=== PATIENT | female | born 1960 | race Caucasian/White ===

== ENCOUNTER → 2016-07-30 | Outpatient (CLI) | payer OTHER ==
[~2016-07-30] MED LIST: CLONPOW23 PO; GABAPOW41 PO; MELOPOW PO; METOPROLOL PO; PREVACID PO
[2016-07-30 12:23] LABS: BASO % 0.4 % (0.0-1.0); EOS # 0.1 K/mm3 (0.0-0.50); EOS % 1.7 % (0.0-3.0); LARGE UNSTAINED CELL # 0.1 K/mm3 (0.0-0.4); LARGE UNSTAINED CELL % 1.5 % (0.0-4.0); LYMPH # 2.1 K/mm3 (1.5-4.5); LYMPH % 26.8 % (24.0-44.0); MEAN CORPUSCULAR HEMOGLOBIN 33.5 pg (27.0-33.0); MEAN CORPUSCULAR HGB CONC 32.6 g/dl (32.0-36.5); MEAN CORPUSCULAR VOLUME 102.8 fl (80.0-96.0); MONO # 0.3 K/mm3 (0.0-0.8); MONO % 3.8 % (0.0-5.0); NEUTROPHILS # 5.1 K/mm3 (1.8-7.7); NEUTROPHILS % 65.8 % (36.0-66.0); PLATELET COUNT, AUTOMATED 301 k/mm3 (150-450); RED CELL DISTRIBUTION WIDTH 15.7 % (11.5-14.5); WHITE BLOOD COUNT 7.7 K/mm3 (4.0-10.0)
[2016-07-30 12:45] LABS: ALBUMIN 3.8 GM/DL (3.2-5.2); ALBUMIN/GLOBULIN RATIO 1.19 (1.00-1.93); ALKALINE PHOSPHATASE 158 U/L (45-117); ALT/SGPT 23 U/L (12-78); ANION GAP 9 MEQ/L (8-16); AST/SGOT 9 U/L (15-37); BILIRUBIN,DIRECT 0.2 MG/DL (0.0-0.2); BILIRUBIN,TOTAL 0.6 MG/DL (0.2-1.0); BLOOD UREA NITROGEN 11 MG/DL (7-18); CALCIUM LEVEL 9.3 MG/DL (8.5-10.1); CARBON DIOXIDE LEVEL 30 MEQ/L (21-32); CHLORIDE LEVEL 103 MEQ/L (98-107); CHOLESTEROL LEVEL 159 MG/DL (<200); CREATININE FOR GFR 0.97 MG/DL (0.55-1.02); GLOMERULAR FILTRATION RATE > 60.0 (>51); GLUCOSE, FASTING 105 MG/DL (70-105); POTASSIUM SERUM 4.2 MEQ/L (3.5-5.1); SODIUM LEVEL 142 MEQ/L (136-145); TRIGLYCERIDES LEVEL 209 MG/DL (<150)
== END | disposition home or self-care (01) ==
LOC: M WUC 09:14
PROVIDERS: ATTEND Nurse Practitioner Family
DX: I10 Essential (primary) hypertension (principal); E78.5 Hyperlipidemia, unspecified; K21.9 Gastro-esophageal reflux disease without esophagitis; R53.83 Other fatigue; R63.5 Abnormal weight gain

== ENCOUNTER → 2017-07-23 | Outpatient (CLI) | payer OTHER ==
[2017-07-23 21:14] LABS: ALBUMIN 3.8 GM/DL (3.2-5.2); ALBUMIN/GLOBULIN RATIO 1.31 (1.00-1.93); ALKALINE PHOSPHATASE 158 U/L (45-117); ALT/SGPT 37 U/L (12-78); ANION GAP 11 MEQ/L (8-16); AST/SGOT 22 U/L (7-37); BILIRUBIN,DIRECT 0.3 MG/DL (0.0-0.2); BLOOD UREA NITROGEN 7 MG/DL (7-18); CALCIUM LEVEL 9.6 MG/DL (8.5-10.1); CARBON DIOXIDE LEVEL 25 MEQ/L (21-32); CHLORIDE LEVEL 109 MEQ/L (98-107); CREATININE FOR GFR 0.94 MG/DL (0.55-1.02); GLOMERULAR FILTRATION RATE > 60.0 (>51); GLUCOSE, FASTING 93 MG/DL (70-105); POTASSIUM SERUM 4.5 MEQ/L (3.5-5.1); SODIUM LEVEL 145 MEQ/L (136-145); T UPTAKE 30 % (30-39); TOTAL PROTEIN 6.7 GM/DL (6.4-8.2)
[2017-07-23 21:34] LABS: TOTAL T3 107.6 NG/DL (60.0-181.0)
[2017-07-23 22:02] LABS: LITHIUM LEVEL 0.55 MEQ/L (0.60-1.20)
== END ==
LOC: M WUC 11:39
DX: Z51.81 Encounter for therapeutic drug level monitoring (principal); Z79.899 Other long term (current) drug therapy
CPT/HCPCS: 82248

== ENCOUNTER 2018-03-09 17:13 | Emergency (ER) | payer OTHER ==
[2018-03-09 18:37] LABS: BASO % 0.3 % (0.0-1.0); EOS # 0.1 10^3/uL (0.0-0.50); EOS % 1.4 % (0.0-3.0); HEMATOCRIT 36.1 % (36.0-47.0); HEMOGLOBIN 12.5 g/dl (12.0-15.5); IMMATURE GRANULOCYTE % 0.3 % (0-3.0); LYMPH # 1.7 10^3/uL (1.5-4.5); LYMPH % 24.8 % (24.0-44.0); MEAN CORPUSCULAR HEMOGLOBIN 33.2 pg (27.0-33.0); MEAN CORPUSCULAR HGB CONC 34.6 g/dl (32.0-36.5); MEAN CORPUSCULAR VOLUME 95.8 fl (80.0-96.0); MONO # 0.4 10^3/uL (0.0-0.8); MONO % 5.3 % (0.0-5.0); NEUTROPHILS # 4.8 10^3/uL (1.8-7.7); NEUTROPHILS % 67.9 % (36.0-66.0); PLATELET COUNT, AUTOMATED 237 10^3/uL (150-450); RED BLOOD COUNT 3.77 10^6/uL (4.00-5.40)
[2018-03-09 18:55] LABS: INR 1.05; PROTHROMBIN TIME 13.8 SECONDS (12.1-14.4)
[2018-03-09 18:56] LABS: PARTIAL THROMBOPLASTIN TIME 27.9 SECONDS (25.4-37.6)
[2018-03-09 19:01] LABS: ALBUMIN 3.6 GM/DL (3.2-5.2); ALBUMIN/GLOBULIN RATIO 1.16 (1.00-1.93); ALKALINE PHOSPHATASE 143 U/L (45-117); ALT/SGPT 70 U/L (12-78); ANION GAP 8 MEQ/L (8-16); AST/SGOT 42 U/L (7-37); BILIRUBIN,DIRECT 0.3 MG/DL (0.0-0.2); BILIRUBIN,TOTAL 1.4 MG/DL (0.2-1.0); BLOOD UREA NITROGEN 12 MG/DL (7-18); CALCIUM LEVEL 8.6 MG/DL (8.5-10.1); CARBON DIOXIDE LEVEL 26 MEQ/L (21-32); CHLORIDE LEVEL 109 MEQ/L (98-107); CPK CREATINE PHOSPHOKINASE 43 U/L (26-192); CREATININE FOR GFR 0.95 MG/DL (0.55-1.30); FREE T4 1.03 NG/DL (0.76-1.46); GLOMERULAR FILTRATION RATE > 60.0 (>51); GLUCOSE, FASTING 95 MG/DL (70-100); LIPASE 420 U/L (73-393); POTASSIUM SERUM 3.6 MEQ/L (3.5-5.1); SODIUM LEVEL 143 MEQ/L (136-145); TOTAL PROTEIN 6.7 GM/DL (6.4-8.2); TROPONIN I < 0.02 NG/ML (< 0.10)
[2018-03-09 19:07] LABS: CK-MB VALUE MASS < 1.0 NG/ML (<3.6); MB/CK RELATIVE INDEX 2.32 (< OR =4); NT-PRO BNP 326 PG/ML (<125)
== END 2018-03-09 19:57 | disposition home or self-care (01) ==
LOC: M ED 17:13
DX: K85.90 Acute pancreatitis without necrosis or infection, unspecified (principal); I10 Essential (primary) hypertension; E78.5 Hyperlipidemia, unspecified; Z82.49 Family history of ischemic heart disease and other diseases of the circulatory system; Z98.0 Intestinal bypass and anastomosis status; Z79.899 Other long term (current) drug therapy
CPT/HCPCS: 71046

== ENCOUNTER → 2018-04-21 | Outpatient (CLI) | payer OTHER ==
[2018-04-21 18:29] LABS: ESTIMATED AVERAGE GLUCOSE 77 MG/DL (60-110); HEMOGLOBIN A1c 4.3 %
[2018-04-21 18:38] LABS: BASO % 0.2 % (0.0-1.0); EOS # 0.1 10^3/uL (0.0-0.50); EOS % 1.8 % (0.0-3.0); HEMATOCRIT 38.5 % (36.0-47.0); IMMATURE GRANULOCYTE % 0.2 % (0-3.0); LYMPH # 2.4 10^3/uL (1.5-4.5); LYMPH % 42.2 % (24.0-44.0); MEAN CORPUSCULAR HEMOGLOBIN 33.1 pg (27.0-33.0); MEAN CORPUSCULAR HGB CONC 33.8 g/dl (32.0-36.5); MONO # 0.2 10^3/uL (0.0-0.8); MONO % 3.3 % (0.0-5.0); NEUTROPHILS % 52.3 % (36.0-66.0); PLATELET COUNT, AUTOMATED 247 10^3/uL (150-450); RED BLOOD COUNT 3.93 10^6/uL (4.00-5.40); WHITE BLOOD COUNT 5.7 10^3/uL (4.0-10.0)
[2018-04-21 18:42] LABS: HEMATOCRIT 38.5 % (36.0-47.0)
[2018-04-21 18:48] LABS: ALBUMIN 4.2 GM/DL (3.2-5.2); ALBUMIN/GLOBULIN RATIO 1.68 (1.00-1.93); ALKALINE PHOSPHATASE 167 U/L (45-117); ALT/SGPT 147 U/L (12-78); ANION GAP 8 MEQ/L (8-16); AST/SGOT 122 U/L (7-37); BILIRUBIN,TOTAL 1.1 MG/DL (0.2-1.0); BLOOD UREA NITROGEN 11 MG/DL (7-18); CALCIUM LEVEL 9.2 MG/DL (8.5-10.1); CARBON DIOXIDE LEVEL 33 MEQ/L (21-32); CHLORIDE LEVEL 103 MEQ/L (98-107); CREATININE FOR GFR 0.96 MG/DL (0.55-1.30); FERRITIN 319 NG/ML (8-252); GLOMERULAR FILTRATION RATE > 60.0 (>51); GLUCOSE, FASTING 104 MG/DL (70-100); IRON (FE) 97 UG/DL (50-170); MAGNESIUM LEVEL 2.2 MG/DL (1.8-2.4); PERCENT SATURATION 38.5 % (13.2-45.0); POTASSIUM SERUM 4.1 MEQ/L (3.5-5.1); SODIUM LEVEL 144 MEQ/L (136-145); TOTAL 25(OH) VITAMIN D 12.4 NG/ML (30.0-100.0); TOTAL IRON BINDING CAPACITY 252 UG/DL (250-450); TOTAL PROTEIN 6.7 GM/DL (6.4-8.2)
[2018-04-24 14:05] LABS: PRETREATED FOLATE FOR RBCFOL 5.1 NG/ML; RBC FOLATE 278.2 NG/ML (280-791)
== END ==
LOC: M WUC 11:33
DX: K91.2 Postsurgical malabsorption, not elsewhere classified (principal); Z98.84 Bariatric surgery status
CPT/HCPCS: 83550

== ENCOUNTER 2018-04-24 11:22 | Emergency (ER) | payer OTHER | END 2018-04-24 13:50 | disposition home or self-care (01) | LOC: M ED 11:22 | DX: S70.02XA Contusion of left hip, initial encounter (principal); S09.90XA Unspecified injury of head, initial encounter; W18.09XA Striking against other object with subsequent fall, initial encounter; Y92.019 Unspecified place in single-family (private) house as the place of occurrence of the external cause | CPT/HCPCS: 73502 ==

== ENCOUNTER → 2018-12-26 | Outpatient (CLI) | payer OTHER ==
[~2018-12-26] MED LIST changes: +CLON1TAB8; +D 50CAP PO; +ESZO1TAB6; +FLIN1CHW PO; +HYDR-3713; +HYDR-3715 PO; +HYDR200T3; +HYDR25TAB; +LANS30CA; +LITH45TASA PO; +METH50IN8; +PROM25TA12; +PROP80TA; +ROPI1TAB PO; +VENL75CA47; +ZOFR4TAB14 PO
[2018-12-26 14:00] LABS: BASO % 0.5 % (0.0-1.0); EOS # 0.1 10^3/uL (0.0-0.50); EOS % 1.5 % (0.0-3.0); HEMATOCRIT 37.6 % (36.0-47.0); HEMOGLOBIN 13.1 g/dl (12.0-15.5); LYMPH # 2.6 10^3/uL (1.5-4.5); LYMPH % 44.6 % (24.0-44.0); MEAN CORPUSCULAR HGB CONC 34.8 g/dl (32.0-36.5); MEAN CORPUSCULAR VOLUME 103.3 fl (80.0-96.0); MONO # 0.5 10^3/uL (0.0-0.8); MONO % 8.1 % (0.0-5.0); NEUTROPHILS # 2.6 10^3/uL (1.8-7.7); NEUTROPHILS % 44.6 % (36.0-66.0); PLATELET COUNT, AUTOMATED 186 10^3/uL (150-450); RED BLOOD COUNT 3.64 10^6/uL (4.00-5.40); WHITE BLOOD COUNT 5.8 10^3/uL (4.0-10.0)
[2018-12-26 14:06] LABS: ALBUMIN 3.6 GM/DL (3.2-5.2); PERCENT SATURATION 30.2 % (13.2-45.0)
== END ==
LOC: M WUC 11:13
PROVIDERS: ATTEND Orthopaedic Surgery
DX: Z01.812 Encounter for preprocedural laboratory examination (principal); Z86.2 Personal history of diseases of the blood and blood-forming organs and certain disorders involving the immune mechanism; D63.8 Anemia in other chronic diseases classified elsewhere; M16.0 Bilateral primary osteoarthritis of hip

== ENCOUNTER 2019-03-16 11:33 | Outpatient (RCR) | payer OTHER | END 2019-03-20 | LOC: M PT 11:33 | PROVIDERS: ATTEND Orthopaedic Surgery | DX: Z96.643 Presence of artificial hip joint, bilateral (principal) ==

== ENCOUNTER 2019-04-16 11:45 | Outpatient (RCR) | payer OTHER | END 2019-04-19 | LOC: M PT 11:45 | PROVIDERS: ATTEND Physician Assistant | DX: M79.7 Fibromyalgia (principal); Z96.641 Presence of right artificial hip joint; Z96.642 Presence of left artificial hip joint ==

== ENCOUNTER 2019-05-13 11:45 | Outpatient (RCR) | payer OTHER | END 2019-05-20 | LOC: M PT 11:45 | PROVIDERS: ATTEND Physician Assistant | DX: Z47.1 Aftercare following joint replacement surgery (principal); Z96.641 Presence of right artificial hip joint; Z96.642 Presence of left artificial hip joint ==

== ENCOUNTER 2019-05-24 13:10 | Outpatient (RCR) | payer OTHER | END 2019-06-19 | LOC: M PT 13:10 | PROVIDERS: ATTEND Physician Assistant | DX: Z96.641 Presence of right artificial hip joint (principal); Z96.642 Presence of left artificial hip joint ==

== ENCOUNTER 2019-07-02 14:20 | Outpatient (RCR) | payer OTHER | END 2019-07-20 | LOC: M PT 14:20 | PROVIDERS: ATTEND Orthopaedic Surgery | DX: Z96.641 Presence of right artificial hip joint (principal); Z96.642 Presence of left artificial hip joint ==

== ENCOUNTER → 2020-01-10 | Outpatient (CLI) | payer OTHER ==
[~2020-01-10] MED LIST changes: -ROPI1TAB PO; +ROPI1TAB3 PO
[2020-01-10 16:34] LABS: BASO % 0.3 % (0.0-1.0); EOS # 0.1 10^3/uL (0.0-0.5); EOS % 1.6 % (0.0-3.0); HEMATOCRIT 38.7 % (36.0-47.0); LYMPH # 2.3 10^3/uL (1.5-5.0); LYMPH % 30.5 % (24.0-44.0); MEAN CORPUSCULAR HEMOGLOBIN 33.4 pg (27.0-33.0); MEAN CORPUSCULAR HGB CONC 33.6 g/dl (32.0-36.5); MEAN CORPUSCULAR VOLUME 99.5 fl (80.0-96.0); MONO # 0.3 10^3/uL (0.0-0.8); MONO % 4.3 % (0.0-5.0); NEUTROPHILS # 4.8 10^3/uL (1.5-8.5); PLATELET COUNT, AUTOMATED 240 10^3/uL (150-450); RED BLOOD COUNT 3.89 10^6/uL (4.00-5.40); WHITE BLOOD COUNT 7.6 10^3/uL (4.0-10.0)
[2020-01-10 16:56] LABS: ERYTHROCYTE SEDIMENTATION RATE 6 mm/hr (0-30)
[2020-01-10 17:08] LABS: ALT/SGPT 45 U/L (12-78); BILIRUBIN,TOTAL 1.6 MG/DL (0.2-1.0); BLOOD UREA NITROGEN 8 MG/DL (7-18); C REACTIVE PROTEIN QUANTITATIV < 0.30 MG/DL (0.00-0.30); CALCIUM LEVEL 9.1 MG/DL (8.5-10.1); CARBON DIOXIDE LEVEL 31 MEQ/L (21-32); CHLORIDE LEVEL 105 MEQ/L (98-107); CREATININE FOR GFR 0.93 MG/DL (0.55-1.30); GLOMERULAR FILTRATION RATE > 60.0 (>51); GLUCOSE, FASTING 88 MG/DL (70-100); POTASSIUM SERUM 3.6 MEQ/L (3.5-5.1); SODIUM LEVEL 139 MEQ/L (136-145); TOTAL PROTEIN 6.6 GM/DL (6.4-8.2)
== END ==
LOC: M WUC 11:17
PROVIDERS: ATTEND Internal Medicine Rheumatology
DX: Z51.81 Encounter for therapeutic drug level monitoring (principal); Z79.899 Other long term (current) drug therapy; M06.9 Rheumatoid arthritis, unspecified

== ENCOUNTER 2021-04-25 17:17 | Inpatient (IN) | payer OTHER ==
[~2021-04-25] VITALS: Ht 162.6 cm; Wt 18.8 kg
[~2021-04-25 17:17] MED LIST changes: -CLON1TAB8; +CLON1TAB8 PO; +HYDR-3490 PO; -HYDR25TAB; -LANS30CA; +LANS30CA PO; -PROM25TA12; +PROM25TA12 PO; -PROP80TA; +PROP80TA PO; -VENL75CA47; +VENL75CA47 PO
[2021-04-25 20:00] LABS: HEMATOCRIT 39.4 % (36.0-47.0); HEMOGLOBIN 13.5 g/dl (12.0-15.5); MEAN CORPUSCULAR HEMOGLOBIN 31.5 pg (27.0-33.0); MEAN CORPUSCULAR HGB CONC 34.3 g/dl (32.0-36.5); MEAN CORPUSCULAR VOLUME 92.1 fl (80.0-96.0); PLATELET COUNT, AUTOMATED 185 10^3/uL (150-450); RED BLOOD COUNT 4.28 10^6/uL (4.00-5.40)
[2021-04-25 20:32] LABS: ACETAMINOPHEN LEVEL < 2.0 UG/ML (10.0-30.0); ALBUMIN 3.8 GM/DL (3.2-5.2); ALT/SGPT 38 U/L (12-78); BILIRUBIN,DIRECT 0.4 MG/DL (0.0-0.2); BILIRUBIN,TOTAL 1.6 MG/DL (0.2-1.0); BLOOD UREA NITROGEN 11 MG/DL (7-18); CALCIUM LEVEL 8.8 MG/DL (8.5-10.1); CARBON DIOXIDE LEVEL 28 MEQ/L (21-32); CHLORIDE LEVEL 110 MEQ/L (98-107); CREATININE FOR GFR 0.72 MG/DL (0.55-1.30); ETHYL ALCOHOL (ETHANOL) < 0.003 % (0.000-0.010); GLOMERULAR FILTRATION RATE > 60.0 (>51); GLUCOSE, FASTING 90 MG/DL (70-100); POTASSIUM SERUM 3.6 MEQ/L (3.5-5.1); SALICYLATE LEVEL < 1.7 MG/DL (5.0-30.0); SODIUM LEVEL 142 MEQ/L (136-145); TOTAL PROTEIN 6.5 GM/DL (6.4-8.2)
[2021-04-26 00:13] LABS: AMPHETAMINES LEVEL URINE NEGATIVE (NEGATIVE); BARBITURATES URINE NEGATIVE (NEGATIVE); BENZODIAZEPINES URINE POSITIVE (NEGATIVE); CANNABINOIDS URINE NEGATIVE (NEGATIVE); COCAINE METABOLITE URINE NEGATIVE (NEGATIVE); METHADONE URINE NEGATIVE (NEGATIVE); OPIATES URINE NEGATIVE (NEGATIVE); PHENCYCLIDINE URINE NEGATIVE (NEGATIVE)
[2021-04-26] MEDS ORDERED: FOLI1TAB11 PO (07:50)
[2021-04-26] MEDS ORDERED: EFFE150C2 PO (07:50)
[2021-04-26] MEDS ORDERED: ERGO500029 PO (07:50)
[2021-04-26] MEDS ORDERED: LITH300C PO (07:50)
[2021-04-26] MEDS ORDERED: CETI-43 PO (07:53)
[2021-04-26] MEDS ORDERED: ZOLP12.518 PO (07:53)
[2021-04-26] MEDS ORDERED: FLUTISP (07:53)
[2021-04-26] MEDS ORDERED: HOME MED LIST COMPLETE! XX SCH (07:55)
[2021-04-26] MEDS ORDERED: clonazePAM 1 MG TAB PO PRN (08:20)
[2021-04-26] MEDS ORDERED: VENLAFAXINE **XR** 75MG CAPSULE PO SCH (09:00)
[2021-04-26] MEDS ORDERED: rOPINIRole 2MG TAB PO SCH (09:00)
[2021-04-26] MEDS ORDERED: PROPRANOLOL 20 MG TAB PO SCH (09:00)
[2021-04-26 11:13] LABS: RSV AMPLIFICATION NEGATIVE (NEGATIVE)
[2021-04-26] MEDS ORDERED: MAALOX 30 ML SUSP *UDC PO PRN (14:55)
[2021-04-26] MEDS ORDERED: MOM 30ML SUSPENSION UDC PO PRN (14:55)
[2021-04-26] MEDS ORDERED: ACETAMINOPHEN TAB 650MG DOSE (2X325MG) PO PRN (14:55)
--- NOTE | 2021-04-26 19:41 | ECGEPIP ---
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
[2021-04-26] MEDS: clonazePAM 1 MG TAB PO SCH (21:00)
[2021-04-26] MEDS: FLUTICASONE PROP 0.05% NASAL SPRAY 16 GM (FLONASE) SCH (21:00)
[2021-04-26] MEDS: zolPIDEM TARTRATE 5 MG TAB PO SCH (21:03)
[2021-04-27] MEDS: traZODone 50 MG TAB PO PRN (00:42)
[2021-04-27 06:16] VITALS: BP 112/58
[2021-04-27] MEDS ORDERED: LITHIUM CARBONATE 300 MG CAP PO SCH (09:00)
[2021-04-27] MEDS ORDERED: VENLAFAXINE **XR** 75MG CAPSULE PO SCH (09:00)
[2021-04-27] MEDS: FOLIC ACID 1 MG TAB PO SCH (09:13)
[2021-04-27] MEDS: CETIRIZINE (ZyrTEC) 10 MG TAB PO SCH (09:13)
[2021-04-27] MEDS: FLUTICASONE PROP 0.05% NASAL SPRAY 16 GM (FLONASE) SCH ×2 (09:13→22:44)
[2021-04-27] MEDS: clonazePAM 1 MG TAB PO SCH ×3 (09:14→22:45)
[2021-04-27] MEDS: PROPRANOLOL 20 MG TAB PO SCH (09:16)
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
[2021-04-27] MEDS: rOPINIRole 0.25 MG TAB(REQUIP) PO SCH ×2 (16:44→22:44)
[2021-04-27 18:00] VITALS: BP 82/62
[2021-04-27] MEDS ORDERED: IBUPROFEN 400MG TAB PO PRN (19:00)
--- NOTE | 2021-04-27 19:27 | HPEPDOC ---
[facility] Medical History & Physical Date of Admission Apr 26, 2021 Date of Service: Apr 27, 2021 History and Physical CHIEF COMPLAINT: Medical health screening HISTORY OF PRESENT ILLNESS: Mrs. Floyd is a 59-year-old female with fibromyalgia, restless leg syndrome, and rheumatoid arthritis who is in the inpatient mental health unit for suicidal ideation. Please see [facility] H&P for information about patient's suicidal ideation. I saw patient in her room with nurse communications executive. Patient was eating dinner on the bed. She tells me that she has diffuse aches in her legs, arms, feet, and lower back from her fibromyalgia. She was on gabapentin at one time, but she gained a lot of weight and ended up happening gastric bypass. She is no longer on gabapentin. Otherwise, she reports alternating hot and cold sensations, chest discomfort secondary to anxiety, and constipation from IBS. Patient denies any shortness of breath, abdominal pain, or dysuria. PAST MEDICAL HISTORY: 1. Fibromyalgia. 2. Restless leg syndrome. 3. Rheumatoid arthritis. 4. Irritable bowel syndrome, constipation predominant. PAST SURGICAL HISTORY: 1. Gastric bypass. 2. Double hip surgery. 3. SOCIAL HISTORY: Tobacco use: Denies ETOH: Denies Illicit drug use: Denies FAMILY HISTORY: Father: History of drug abuse Mother: History of anxiety, heart disease, and blood pressure problems ALLERGIES: Please see below. REVIEW OF SYSTEMS: CONSTITUTIONAL: Reports having alternating hot and cold sensations EYE: Reports blurry vision, uses glasses. ENT: Denies sore throat. RESPIRATORY: Denies shortness of breath. Sometimes has a cough. CARDIOVASCULAR: Reports anxiety induced chest discomfort. GASTROINTESTINAL: Denies abdominal pain. Denies diarrhea. Reports constipation GENITOURINARY: Denies dysuria. CUTANEOUS: Denies rashes. MUSCULOSKELETAL: Reports diffuse muscle aches NEUROLOGICAL: Reports neuropathy in feet bilaterally PSYCHOLOGICAL: Reports anxiety. HOME MEDICATIONS: Please see below. PHYSICAL EXAMINATION: VITAL SIGNS: Temperature 98.3, pulse 86, respiratory rate 16, blood pressure 119/79, pulse oximetry 98% on room air. GENERAL: Not in distress, moves slowly. HEENT: EOMI, sclera clear. NECK: Supple. RESPIRATORY: Lungs clear to auscultation bilaterally, no rales, wheeze or rhonchi. CARDIOVASCULAR: Regular rate and rhythm. ABDOMEN: Soft, nontender, no guarding or rebound tenderness. Normal bowel sounds. MUSCLE SKELETAL: Moves arms and legs independently. NEUROLOGICAL: CN 312 grossly intact, no focal deficits noted. PSYCHOLOGICAL: Depressed. LABORATORY DATA: See below. IMAGING: None MICROBIOLOGY: Please see below. ASSESSMENT and PLAN: 1. Suicidal ideation Being managed by the inpatient mental health unit 2. Fibromyalgia Continue acetaminophen as needed Add on ibuprofen as needed Continue antidepressants 3. Restless leg syndrome Continue ropinirole 4. Hypertension Continue hydrochlorothiazide and propranolol 5. Low back pain May use acetaminophen and ibuprofen as needed Added on lidocaine patch Thank you for consulting us. We will sign off at this time. If there is any further questions or concerns, please do not hesitate to contact us. Vital Signs Vital Signs Date Time Temp Pulse Resp B/P (MAP) Pulse Ox O2 Delivery O2 Flow Rate FiO2 04/27/21 09:16 86 119/79 04/27/21 06:16 98.3 16 98 Room Air Home Medications Scheduled Cetirizine HCl (All Day Allergy) 10 Mg Tablet, 10 MG PO DAILY Clonazepam (Clonazepam) 1 Mg Tab, 1 MG PO TID Ergocalciferol (Vitamin D2) (Vitamin D2) 50,000 Units Cap, 50,000 UNITS PO QWEEK Fluticasone Propionate (Fluticasone Propionate) 16 Gm [place].susp, 1 SPRAY NA BID Folic Acid (Folic Acid) 1 Mg Tablet, 1 MG PO DAILY Hydrochlorothiazide (Hydrochlorothiazide) 25 Mg Tab, 25 MG PO QAM Lansoprazole (Lansoprazole) 30 Mg Cap, 30 MG PO DAILY [place] Carbonate ([place] Carbonate) 300 Mg Capsule, [address] TOLD HER TO DISCONTINUE Propranolol HCl (Propranolol HCl) 80 Mg Tab, 80 MG PO DAILY Ropinirole HCl (Ropinirole HCl) 1 Mg Tab, 1 TAB PO TID Venlafaxine HCl (Venlafaxine HCl ER) 75 Mg Capcr, 75 MG PO DAILY Venlafaxine HCl (Effexor Xr) 150 Mg Cap.er.24h, 150 MG PO DAILY Zolpidem Tartrate (Zolpidem Tartrate ER) 12.5 Mg Tab.mphase, 12.5 MG PO QHS Scheduled PRN Promethazine HCl (Promethazine HCl) 25 Mg Tab, 25 MG PO DAILY PRN for NAUSEA Allergies Coded Allergies: diphenhydramine (Verified Allergy, Unknown, 04/26/21) A-FIB/CHADSVASC A-FIB History Current/History of A-Fib/PAF?: No YARELI DUNHAM DO Apr 27, 2021 19:27
[2021-04-27] MEDS: LITHIUM CARBONATE 300 MG CAP PO SCH (22:45)
[2021-04-27] MEDS: zolPIDEM TARTRATE 5 MG TAB PO SCH (22:45)
[2021-04-27] MEDS: VENLAFAXINE **XR** 75MG CAPSULE PO SCH (22:45)
[2021-04-27] MEDS: LIDOCAINE 5% (LIDODERM) PATCH TD SCH (22:46)
[2021-04-28 07:31] VITALS: BP 127/72
[2021-04-28] MEDS: **NOTE PATIENT COMMENT** MISC XX SCH (09:00)
[2021-04-28] MEDS: PROPRANOLOL 20 MG TAB PO SCH (09:33)
[2021-04-28] MEDS: FLUTICASONE PROP 0.05% NASAL SPRAY 16 GM (FLONASE) SCH ×2 (09:33→22:49)
[2021-04-28] MEDS: rOPINIRole 0.25 MG TAB(REQUIP) PO SCH ×3 (09:34→22:50)
[2021-04-28] MEDS: clonazePAM 1 MG TAB PO SCH ×3 (09:34→22:48)
[2021-04-28] MEDS: CETIRIZINE (ZyrTEC) 10 MG TAB PO SCH (09:35)
[2021-04-28] MEDS: VENLAFAXINE **XR** 75MG CAPSULE PO SCH ×2 (09:35→22:48)
[2021-04-28] MEDS: FOLIC ACID 1 MG TAB PO SCH (09:35)
[2021-04-28] MEDS: LITHIUM CARBONATE 300 MG CAP PO SCH ×2 (09:36→22:48)
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
[2021-04-28 19:16] VITALS: BP 108/77
[2021-04-28] MEDS: zolPIDEM TARTRATE 5 MG TAB PO SCH (22:48)
[2021-04-28] MEDS: LIDOCAINE 5% (LIDODERM) PATCH TD SCH (22:51)
[2021-04-29 06:28] VITALS: BP 113/71
[2021-04-29] MEDS: FLUTICASONE PROP 0.05% NASAL SPRAY 16 GM (FLONASE) SCH ×2 (08:27→22:45)
[2021-04-29] MEDS: PROPRANOLOL 20 MG TAB PO SCH (08:28)
[2021-04-29] MEDS: CETIRIZINE (ZyrTEC) 10 MG TAB PO SCH (08:28)
[2021-04-29] MEDS: rOPINIRole 0.25 MG TAB(REQUIP) PO SCH ×3 (08:28→22:46)
[2021-04-29] MEDS: clonazePAM 1 MG TAB PO SCH ×3 (08:28→22:45)
[2021-04-29] MEDS: VENLAFAXINE **XR** 75MG CAPSULE PO SCH ×2 (08:28→22:46)
[2021-04-29] MEDS: FOLIC ACID 1 MG TAB PO SCH (08:29)
[2021-04-29] MEDS: LITHIUM CARBONATE 300 MG CAP PO SCH ×3 (08:29→22:46)
[2021-04-29] MEDS: **NOTE PATIENT COMMENT** MISC XX SCH (09:28)
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
[2021-04-29 22:00] VITALS: BP 117/78
[2021-04-29] MEDS: zolPIDEM TARTRATE 5 MG TAB PO SCH (22:45)
[2021-04-29] MEDS: traZODone 50 MG TAB PO PRN (22:46)
[2021-04-29] MEDS: LIDOCAINE 5% (LIDODERM) PATCH TD SCH (22:53)
[2021-04-30 06:48] VITALS: BP 127/78
[2021-04-30] MEDS ORDERED: VITAMIN D 50,000 UNITS CAPSULE (ERGOCALCIFEROL 1.25MG) PO ONE (09:00)
[2021-04-30] MEDS: FLUTICASONE PROP 0.05% NASAL SPRAY 16 GM (FLONASE) SCH ×2 (09:01→20:29)
[2021-04-30] MEDS: VENLAFAXINE **XR** 75MG CAPSULE PO SCH ×2 (09:02→20:30)
[2021-04-30] MEDS: clonazePAM 1 MG TAB PO SCH ×3 (09:03→20:30)
[2021-04-30] MEDS: FOLIC ACID 1 MG TAB PO SCH (09:03)
[2021-04-30] MEDS: CETIRIZINE (ZyrTEC) 10 MG TAB PO SCH (09:03)
[2021-04-30] MEDS: LITHIUM CARBONATE 300 MG CAP PO SCH ×3 (09:03→20:30)
[2021-04-30] MEDS: rOPINIRole 0.25 MG TAB(REQUIP) PO SCH ×3 (09:04→20:30)
[2021-04-30] MEDS: PROPRANOLOL 20 MG TAB PO SCH (09:05)
[2021-04-30] MEDS: **NOTE PATIENT COMMENT** MISC XX SCH (09:05)
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
[2021-04-30 16:49] VITALS: BP 121/77
[2021-04-30] MEDS: zolPIDEM TARTRATE 5 MG TAB PO SCH (20:29)
[2021-04-30] MEDS: LIDOCAINE 5% (LIDODERM) PATCH TD SCH (20:30)
[2021-05-01 06:58] VITALS: BP 150/78
[2021-05-01] MEDS: **NOTE PATIENT COMMENT** MISC XX SCH (07:49)
[2021-05-01] MEDS: PROMETHAZINE 25 MG TAB PO PRN (07:54)
[2021-05-01] MEDS: rOPINIRole 0.25 MG TAB(REQUIP) PO SCH ×3 (07:54→20:46)
[2021-05-01] MEDS: PROPRANOLOL 20 MG TAB PO SCH (07:54)
[2021-05-01] MEDS: LITHIUM CARBONATE 300 MG CAP PO SCH ×3 (07:54→20:47)
[2021-05-01] MEDS: VENLAFAXINE **XR** 75MG CAPSULE PO SCH ×2 (07:54→20:46)
[2021-05-01] MEDS: FLUTICASONE PROP 0.05% NASAL SPRAY 16 GM (FLONASE) SCH ×2 (07:54→20:45)
[2021-05-01] MEDS: FOLIC ACID 1 MG TAB PO SCH (07:55)
[2021-05-01] MEDS: clonazePAM 1 MG TAB PO SCH ×3 (07:55→20:45)
[2021-05-01] MEDS: CETIRIZINE (ZyrTEC) 10 MG TAB PO SCH (07:55)
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
[2021-05-01 16:21] VITALS: BP 114/73
[2021-05-01] MEDS: zolPIDEM TARTRATE 5 MG TAB PO SCH (20:46)
[2021-05-01] MEDS: LIDOCAINE 5% (LIDODERM) PATCH TD SCH (20:55)
[2021-05-02 06:39] VITALS: BP 113/69
[2021-05-02] MEDS: FLUTICASONE PROP 0.05% NASAL SPRAY 16 GM (FLONASE) SCH ×2 (08:17→21:00)
[2021-05-02] MEDS: PROPRANOLOL 20 MG TAB PO SCH (08:18)
[2021-05-02] MEDS: rOPINIRole 0.25 MG TAB(REQUIP) PO SCH ×3 (08:19→21:42)
[2021-05-02] MEDS: clonazePAM 1 MG TAB PO SCH ×3 (08:20→21:42)
[2021-05-02] MEDS: LITHIUM CARBONATE 300 MG CAP PO SCH ×3 (08:20→21:42)
[2021-05-02] MEDS: VENLAFAXINE **XR** 75MG CAPSULE PO SCH ×2 (08:20→21:42)
[2021-05-02] MEDS: CETIRIZINE (ZyrTEC) 10 MG TAB PO SCH (08:21)
[2021-05-02] MEDS: FOLIC ACID 1 MG TAB PO SCH (08:21)
[2021-05-02] MEDS: **NOTE PATIENT COMMENT** MISC XX SCH (08:22)
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
[2021-05-02 16:24] VITALS: BP 107/69
[2021-05-02] MEDS: zolPIDEM TARTRATE 5 MG TAB PO SCH (21:42)
[2021-05-02] MEDS: LIDOCAINE 5% (LIDODERM) PATCH TD SCH (21:42)
[2021-05-03 07:47] VITALS: BP 117/70
[2021-05-03] MEDS: **NOTE PATIENT COMMENT** MISC XX SCH (09:00)
[2021-05-03] MEDS: CETIRIZINE (ZyrTEC) 10 MG TAB PO SCH (09:54)
[2021-05-03] MEDS: FOLIC ACID 1 MG TAB PO SCH (09:55)
[2021-05-03] MEDS: rOPINIRole 0.25 MG TAB(REQUIP) PO SCH ×3 (09:55→22:13)
[2021-05-03] MEDS: VENLAFAXINE **XR** 75MG CAPSULE PO SCH ×2 (09:55→22:13)
[2021-05-03] MEDS: LITHIUM CARBONATE 300 MG CAP PO SCH ×3 (09:55→22:13)
[2021-05-03] MEDS: FLUTICASONE PROP 0.05% NASAL SPRAY 16 GM (FLONASE) SCH ×2 (09:56→22:13)
[2021-05-03] MEDS: clonazePAM 1 MG TAB PO SCH ×3 (09:56→22:14)
[2021-05-03] MEDS: PROPRANOLOL 20 MG TAB PO SCH (09:57)
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
[2021-05-03 19:16] VITALS: BP 114/75
[2021-05-03] MEDS: LIDOCAINE 5% (LIDODERM) PATCH TD SCH (21:00)
[2021-05-03] MEDS: zolPIDEM TARTRATE 5 MG TAB PO SCH (22:16)
[2021-05-04 07:24] VITALS: BP 119/70
[2021-05-04] MEDS: PROMETHAZINE 25 MG TAB PO PRN (08:41)
[2021-05-04] MEDS: VENLAFAXINE **XR** 75MG CAPSULE PO SCH (09:41)
[2021-05-04 09:42] VITALS: BP 118/70
[2021-05-04] MEDS: PROPRANOLOL 20 MG TAB PO SCH (09:42)
[2021-05-04] MEDS: CETIRIZINE (ZyrTEC) 10 MG TAB PO SCH (09:42)
[2021-05-04] MEDS: LITHIUM CARBONATE 300 MG CAP PO SCH ×2 (09:42→13:33)
[2021-05-04] MEDS: rOPINIRole 0.25 MG TAB(REQUIP) PO SCH (09:42)
[2021-05-04] MEDS: FOLIC ACID 1 MG TAB PO SCH (09:42)
[2021-05-04] MEDS: clonazePAM 1 MG TAB PO SCH ×2 (09:43→13:20)
[2021-05-04] MEDS: FLUTICASONE PROP 0.05% NASAL SPRAY 16 GM (FLONASE) SCH (09:43)
[2021-05-04] MEDS: **NOTE PATIENT COMMENT** MISC XX SCH (09:55)
[2021-05-04 11:00] VITALS: BP 136/69
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
[2021-05-04 13:08] LABS: BASO % 0.3 % (0.0-1.0); EOS # 0.2 10^3/uL (0.0-0.5); EOS % 1.5 % (0.0-3.0); HEMATOCRIT 44.2 % (36.0-47.0); HEMOGLOBIN 15.6 g/dl (12.0-15.5); LYMPH % 17.2 % (24.0-44.0); MEAN CORPUSCULAR HEMOGLOBIN 31.4 pg (27.0-33.0); MEAN CORPUSCULAR HGB CONC 35.3 g/dl (32.0-36.5); MEAN CORPUSCULAR VOLUME 88.9 fl (80.0-96.0); MONO # 0.6 10^3/uL (0.0-0.8); MONO % 5.1 % (2.0-8.0); NEUTROPHILS # 8.8 10^3/uL (1.5-8.5); NEUTROPHILS % 75.5 % (36.0-66.0); PLATELET COUNT, AUTOMATED 240 10^3/uL (150-450); RED BLOOD COUNT 4.97 10^6/uL (4.00-5.40); WHITE BLOOD COUNT 11.7 10^3/uL (4.0-10.0)
[2021-05-04 13:26] LABS: ALT/SGPT 44 U/L (12-78); BILIRUBIN,TOTAL 2.5 MG/DL (0.2-1.0); BLOOD UREA NITROGEN 25 MG/DL (7-18); CALCIUM LEVEL 9.7 MG/DL (8.5-10.1); CARBON DIOXIDE LEVEL 29 MEQ/L (21-32); CHLORIDE LEVEL 97 MEQ/L (98-107); CREATININE FOR GFR 1.02 MG/DL (0.55-1.30); GLUCOSE, FASTING 95 MG/DL (70-100); LITHIUM LEVEL 2.87 MEQ/L (0.60-1.20); NT-PRO BNP 279 PG/ML (<125); POTASSIUM SERUM 3.4 MEQ/L (3.5-5.1); SODIUM LEVEL 133 MEQ/L (136-145); TROPONIN I < 0.02 NG/ML (< 0.10)
--- NOTE | 2021-05-06 08:48 | ECGEPIP ---
[facility] Test Date: 2021-05-04 Pat Name: MARGO KPAOOR Department: Room: [place] [address] Gender: Female Product Expert: ankit : 1960 Requested By: LORNA CALVERT Order Number: [id number] Reading MD: Hakan Cazares Measurements Intervals [place] Rate: 63 P: 74 MO: 164 QRS: -69 QRSD: 90 T: 61 QT: 516 QTc: 528 Interpretive Statements Normal sinus rhythm Left axis deviation Prolonged QTc interval new from tracing done 04-26-21 Electronically Signed on 05-06-2021 8:47:53 EDT by Hakan Cazares
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
== END 2021-05-04 15:25 | disposition short-term general hospital (02) | DRG 885 ==
LOC: M ED 17:17 → M ED INP 04-26 14:51 → M PSY 04-26 19:29
PROVIDERS: ADMIT Psychiatry & Neurology Psychiatry; ATTEND Psychiatry & Neurology Psychiatry
DX: F31.81 Bipolar II disorder (principal); R45.851 Suicidal ideations; M79.7 Fibromyalgia; G25.81 Restless legs syndrome; Z81.8 Family history of other mental and behavioral disorders; Z62.810 Personal history of physical and sexual abuse in childhood; M06.9 Rheumatoid arthritis, unspecified; Z96.643 Presence of artificial hip joint, bilateral; Z79.899 Other long term (current) drug therapy; K58.1 Irritable bowel syndrome with constipation; Z98.84 Bariatric surgery status; M54.50 Low back pain, unspecified; Z88.8 Allergy status to other drugs, medicaments and biological substances; Z63.0 Problems in relationship with spouse or partner

== ENCOUNTER 2021-05-04 13:51 | Inpatient (IN) | payer OTHER ==
[~2021-05-04 13:51] MED LIST changes: +CETI-43 PO; +EFFE150C2 PO; +ERGO500029 PO; +FLUTISP; +FOLI1TAB11 PO; +LITH300C PO; +ZOLP12.518 PO
[2021-05-04] MEDS ORDERED: MAALOX 30 ML SUSP *UDC PO PRN (14:50)
[2021-05-04] MEDS ORDERED: MOM 30ML SUSPENSION UDC PO PRN (14:50)
[2021-05-04] MEDS ORDERED: NS 1,000 ML IV ONE (14:50)
[2021-05-04] MEDS ORDERED: ACETAMINOPHEN TAB 650MG DOSE (2X325MG) PO PRN (14:50)
[2021-05-04 15:37] VITALS: BP 110/69
--- NOTE | 2021-05-04 15:45 | HPEPDOC ---
[facility] Medical History & Physical Date of Admission May 04, 2021 Date of Service: May 04, 2021 History and Physical CHIEF COMPLAINT: AMS, lethargy HISTORY OF PRESENT ILLNESS: 59-year-old female with a past medical history of RLS, fibromyalgia, rheumatoid arthritis was admitted to [facility] on April 26 for suicidal ideation. I was called to assess the patient as she had developed confusion weakness lethargy and slurred speech earlier this morning. She was unable to feed herself or rise from bed. Upon my evaluation patient was awake and alert to person however was slightly confused to place and time. Patient was able to follow my commands and answer my questions appropriately. She st ates that she has no chest pain, palpitations, nausea, vomiting, diarrhea or focal weakness or numbness. Upon chart review patient takes lithium 300 mg at home this dose was increased during her admission to [facility] to 300 mg 3 times daily, and her effexor dose was increased to 150 mg in am, and 75 mg at night. [place] level reported at 2.7. Patient will be admitted to hospitalist service for management of encephalopathy/AMS possibly 2/2 lithium toxicity. PAST MEDICAL HISTORY: RLS Bipolar 2 RA Fibromyalgia. PAST SURGICAL HISTORY: 1. Gastric bypass. 2. Double hip surgery. 3. SOCIAL HISTORY: Tobacco use: Denies ETOH: Denies Illicit drug use: Denies FAMILY HISTORY: Father: History of drug abuse Mother: History of anxiety, heart disease, and blood pressure problems ALLERGIES: Please see below. REVIEW OF SYSTEMS: 10 point ROS conducted, relevant findings noted in the HPI HOME MEDICATIONS: Please see below. PHYSICAL EXAMINATION: VITAL SIGNS: please see below General: NAD, comfortable HEENT: PERRLA, EOMI, sclerae clear Neck: supple, normal ROM, no JVD Respiratory: lungs CTAB, no wheeze, no rales, no crackles CVS: RRR, normal S1, S2, no murmurs Abdo: soft, no masses, no hepatosplenomegaly, BS+, no rebound tenderness Extremities: no edema, pulses 2+ MSK: no joint deformities, normal ROM Neuro: no focal neuro deficits, moving all 4 extremities, CN2-12 intact. Strength 5/5 in all 4 extremities. No nystagmus. Psych: calm, cooperative, AAO x 3 LABORATORY DATA: See below. MICROBIOLOGY: Please see below. ASSESSMENT: 59-year-old female with a past medical history of RLS, fibromyalgia, rheumatoid arthritis was admitted to [facility] on April 26 for suicidal ideation. I was called to assess the patient as she had developed confusion weakness lethargy and slurred speech earlier this morning. She was unable to feed herself or rise from bed. Upon my evaluation patient was awake and alert to person however was slightly confused to place and time. Patient was able to follow my commands and answer my questions appropriately. She states that she has no chest pain, palpitations, nausea, vomiting, diarrhea or focal weakness or numbness. Upon chart review patient takes lithium 300 mg at home this dose was increased during her admission to [facility] to 300 mg 3 times daily, and her effexor dose was increased to 150 mg in am, and 75 mg at night. [place] level reported at 2.7. Patient will be admitted to hospitalist service for management of encephalopathy/AMS possibly 2/2 lithium toxicity. . PLAN: 1. Encephalopathy/AMS - possible 2/2 lithium toxicity - lithium increased from 300 mg daily to 300 mg TID during [facility] stay - Li level 2.7 - spoke to Poison Control, recommendation to repeat Li level in 4 hours, continue to trend q6h. - monitor renal function, wnl at present. - check EKG - start IVF replacement, beginning with 1L NS bolus - continue with 1.5 maintenance NS - monitor for onset of diabetes insipidus - check CT head, CT abdo pelvis - LA wnl. - check UA, blood cultures. 2. Fibromyalgia Continue acetaminophen as needed 3. Restless leg syndrome Continue ropinirole 4. Hypertension - will hold HCTZ and propranolol due to potential for lithium to cause bradycardia and renal failure. 5. Low back pain May use acetaminophen prn 6. SI - per psychiatry, maintain 1 to 1 sitter. Dispo: pending clinical improvement. Admission to span > 2 midnights. Plan to DC to [facility]. Vital Signs Vital Signs Date Time Temp Pulse Resp B/P (MAP) Pulse Ox O2 Delivery O2 Flow Rate FiO2 05/04/21 15:37 98.4 63 18 110/69 (83) 96 Room Air Home Medications Scheduled Hydrochlorothiazide (Hydrochlorothiazide) 12.5 Mg Tablet, 25 MG PO DAILY Nystatin (Nystatin Oral Susp) 100,000 Unit/1 Ml Oral.susp, 5 ML SS BID Ropinirole HCl (Ropinirole HCl) 0.5 Mg Tablet, 0.5 MG PO TID Scheduled PRN Acetaminophen (Acetaminophen) 325 Mg Tablet, 650 MG PO Q4H PRN for MILD PAIN or TEMP > 101 Allergies Coded Allergies: diphenhydramine (Verified Allergy, Unknown, 04/26/21) A-FIB/CHADSVASC A-FIB History Current/History of A-Fib/PAF?: No LORNA CALVERT MD May 04, 2021 15:45
[2021-05-04 17:13] LABS: ALBUMIN 3.6 GM/DL (3.2-5.2); BILIRUBIN,TOTAL 1.9 MG/DL (0.2-1.0); CALCIUM LEVEL 9.5 MG/DL (8.5-10.1); CREATININE FOR GFR 1.09 MG/DL (0.55-1.30); GLOMERULAR FILTRATION RATE 54.7 (>51); LITHIUM LEVEL 2.9 MEQ/L (0.60-1.20); POTASSIUM SERUM 3.2 MEQ/L (3.5-5.1); TOTAL PROTEIN 6.3 GM/DL (6.4-8.2)
[2021-05-04] MEDS ORDERED: POTASSIUM CHLORIDE 10MEQ SR TABLET PO ONE (17:25)
--- NOTE | 2021-05-04 18:00 | REPVR ---
PROCEDURE INFORMATION: Exam: CT Head Without Contrast Exam date and time: 05/04/2021 4:43 PM Age: 61 years old Clinical indication: Altered mental status/memory loss and speech disturbance; Slurred speech; Additional info: AMS, slurred speech TECHNIQUE: Imaging protocol: Computed tomography of the head without contrast. Radiation optimization: All CT scans at this facility use at least one of these dose optimization techniques: automated exposure control; mA and/or kV adjustment per patient size (includes targeted exams where dose is matched to clinical indication); or iterative reconstruction. COMPARISON: CT Head without contrast 04/24/2018 12:11 PM FINDINGS: Brain: No intracranial mass, mass effect or midline shift. No acute intracranial hemorrhage. No CT evidence of acute cortical infarct. Ventricles, cisterns, and sulci are normal in size for age. Paranasal sinuses: Imaged paranasal sinuses are normally aerated. Mastoid air cells: Mastoid air cells and middle ear structures are normally aerated. Orbital cavity: Imaged orbits are unremarkable. Bones/joints: No calvarial fracture or destructive process. Soft tissues: No focal extracranial soft tissue swelling. IMPRESSION: No acute or concerning focal intracranial abnormality. Electronically signed by: Bernard Umaña On 05/04/2021 18:00:02 PM
[2021-05-04] MEDS ORDERED: GLUCOSE 4GM CHEW TABLET PO PRN (18:15)
[2021-05-04] MEDS ORDERED: GLUCAGON INJ 1MG VIAL SC PRN (18:15)
[2021-05-04] MEDS ORDERED: DEXTROSE 50% 50 ML SYRINGE IV PRN (18:15)
--- NOTE | 2021-05-04 18:18 | REPVR ---
PROCEDURE INFORMATION: Exam: CT Abdomen And Pelvis Without Contrast Exam date and time: 05/04/2021 5:16 PM Age: 61 years old Clinical indication: Mass, lump, or swelling; Other: Suprapubic; Additional info: Abdo doscomfort, suprapubic mass TECHNIQUE: Imaging protocol: Computed tomography of the abdomen and pelvis without contrast. Radiation optimization: All CT scans at this facility use at least one of these dose optimization techniques: automated exposure control; mA and/or kV adjustment per patient size (includes targeted exams where dose is matched to clinical indication); or iterative reconstruction. COMPARISON: CR Hip,AP,LAT to include Pelvis 04/24/2018 12:25 PM FINDINGS: Lungs: No suspicious mass or airspace process in the visualized lung bases. Liver: Noncontrast liver shows no obvious lesion. Gallbladder and bile ducts: Gallbladder is surgically absent. Pancreas: Noncontrast pancreas shows no obvious mass or adjacent fluid. Spleen: Noncontrast spleen shows no obvious focal deformity. Adrenal glands: Adrenal glands are normal in appearance. Kidneys and ureters: Kidneys show no stone or hydronephrosis. Stomach and bowel: Limited evaluation without enteric or IV contrast. Postsurgical changes of gastric bypass procedure are present. No evidence of small bowel obstruction. No evidence of small bowel obstruction. Appendix: Appendix is not seen. No RLQ inflammation to suggest appendicitis. Intraperitoneal space: No pneumoperitoneum. No pneumoperitoneum. Vasculature: Atherosclerotic change present in the aorta, without aneurysm. Lymph nodes: No enlarged lymph nodes. Urinary bladder: Bladder is not visualized. Reproductive: Female reproductive organs are not visualized. Bones/joints: Bilateral hip arthroplasty hardware is present. No concerning osseous process Soft tissues: No concerning focal abnormality of the extra-abdominal and pelvic soft tissues. IMPRESSION: 1. No evidence of rectus sheath hematoma or subcutaneous suprapubic mass. The intrapelvic structures are difficult to assess because of bilateral hip arthroplasty artifact. 2. No evidence of renal stone or obstruction or bowel obstruction Electronically signed by: Bernard Umaña On 05/04/2021 18:17:35 PM
[2021-05-04] MEDS: NS 1,000 ML IV SCH ×2 (18:20→23:23)
--- NOTE | 2021-05-04 18:32 | REP ---
INDICATION: elevated bilirubin COMPARISON: None. TECHNIQUE: Real time turk scale ultrasound examination using curved array transducer. FINDINGS: Liver and pancreas are normal in contour, size, and echogenicity without focal hepatic or pancreatic lesions identified. The gallbladder is surgically absent. No biliary ductal dilatation is appreciated and the common bile duct measures 6.4 mm diameter. Right kidney is normal in reniform shape without hydronephrosis and measures 11.5 x 4.4 x 3.8 cm. No ascites in the visualized right upper quadrant. IMPRESSION: Evidence for prior cholecystectomy. Otherwise normal right upper quadrant ultrasound. <Electronically signed by Bhaskar Castaneda > 05/04/21 [id number]
[2021-05-04 20:00] VITALS: BP 110/55
[2021-05-04] MEDS: HEPARIN SOD (PORCINE) 5000UNITS/ML 1ML VIAL/SYRINGE SC SCH (21:12)
[2021-05-05] VITALS: BP 109/53
[2021-05-05 04:00] VITALS: BP 108/66
[2021-05-05] MEDS: NS 1,000 ML IV SCH ×4 (04:30→17:28)
[2021-05-05 05:35] LABS: BASO % 0.2 % (0.0-1.0); EOS # 0.1 10^3/uL (0.0-0.5); EOS % 1.6 % (0.0-3.0); HEMATOCRIT 31.7 % (36.0-47.0); LYMPH # 1.8 10^3/uL (1.5-5.0); LYMPH % 28.8 % (24.0-44.0); MEAN CORPUSCULAR HEMOGLOBIN 31.3 pg (27.0-33.0); MEAN CORPUSCULAR HGB CONC 34.4 g/dl (32.0-36.5); MEAN CORPUSCULAR VOLUME 91.1 fl (80.0-96.0); MONO # 0.4 10^3/uL (0.0-0.8); MONO % 6.4 % (2.0-8.0); NEUTROPHILS # 3.8 10^3/uL (1.5-8.5); NEUTROPHILS % 62.8 % (36.0-66.0); PLATELET COUNT, AUTOMATED 152 10^3/uL (150-450); RED BLOOD COUNT 3.48 10^6/uL (4.00-5.40); WHITE BLOOD COUNT 6.1 10^3/uL (4.0-10.0)
[2021-05-05 05:41] LABS: HEMOGLOBIN 10.9 g/dl (12.0-15.5)
[2021-05-05] MEDS: HEPARIN SOD (PORCINE) 5000UNITS/ML 1ML VIAL/SYRINGE SC SCH ×3 (06:12→21:38)
[2021-05-05 06:27] LABS: ALBUMIN 2.7 GM/DL (3.2-5.2); ALT/SGPT 20 U/L (12-78); BLOOD UREA NITROGEN 17 MG/DL (7-18); CALCIUM LEVEL 8.3 MG/DL (8.5-10.1); CARBON DIOXIDE LEVEL 29 MEQ/L (21-32); CHLORIDE LEVEL 106 MEQ/L (98-107); CREATININE FOR GFR 0.79 MG/DL (0.55-1.30); GLOMERULAR FILTRATION RATE > 60.0 (>51); GLUCOSE, FASTING 78 MG/DL (70-100); MAGNESIUM LEVEL 1.8 MG/DL (1.8-2.4); POTASSIUM SERUM 3.2 MEQ/L (3.5-5.1); SODIUM LEVEL 139 MEQ/L (136-145)
[2021-05-05 08:00] VITALS: BP 100/55
[2021-05-05] MEDS ORDERED: POTASSIUM CHLORIDE 10% LIQ 20 MEQ/15 ML UDC PO ONE (08:30)
[2021-05-05] MEDS: MAG SULF 1GM/100ML (MAG RUN) 1 GM in IV 1 EA IV SCH ×2 (09:33→10:40)
[2021-05-05 12:00] VITALS: BP 104/60
[2021-05-05] MEDS ORDERED: POTASSIUM CHLORIDE 10MEQ SR TABLET PO ONE (12:00)
[2021-05-05] MEDS: NYSTATIN 500,000 U/5 ML SUSP UDC SS SCH ×2 (13:23→21:38)
--- NOTE | 2021-05-05 14:26 | IPNPDOC ---
Date Seen The patient was seen on 05/05/21. Progress Note SUBJECTIVE: Patient seen and examined at bedside this morning. She appears to be more alert and oriented, she has an appetite this morning and is eating a muffin for breakfast. She is able to speak in complete sentences and is alert and oriented x3. She denies any chest pain shortness of breath palpitations lightheadedness or dizziness. Overnight telemetry showed bradycardia down to the low 50s. Her EKG shows a QTC prolongation to approximately 540. Thankfully her lithium levels have down trended from 2.9-2.1. She will be given IV magnesium in the setting of QTC prolongation due to lithium toxicity OBJECTIVE PHYSICAL EXAMINATION: VITAL SIGNS: please see below General: NAD, comfortable HEENT: PERRLA, EOMI, sclerae clear Neck: supple, normal ROM, no JVD Respiratory: lungs CTAB, no wheeze, no rales, no crackles CVS: RRR, normal S1, S2, no murmurs Abdo: soft, no masses, no hepatosplenomegaly, BS+, no rebound tenderness Extremities: no edema, pulses 2+ MSK: no joint deformities, normal ROM Neuro: no focal neuro deficits, moving all 4 extremities, CN2-12 intact. Strength 5/5 in all 4 extremities. No nystagmus. Psych: calm, cooperative, AAO x 3 LABORATORY DATA, IMAGING STUDIES, MICROBIOLOGY: Please see below. DVT prophylaxis ordered?: Heparin 5000 units every 8 subcu ASSESSMENT: 59-year-old female with a past medical history of RLS, fibromyalgia, rheumatoid arthritis was admitted to [facility] on April 26 for suicidal ideation. I was called to assess the patient as she had developed confusion weakness lethargy and slurred speech earlier this morning. She was unable to feed herself or rise from bed. Upon my evaluation patient was awake and alert to person however was slightly confused to place and time. Patient was able to follow my commands and answer my questions appropriately. She states that she has no chest pain palpitations nausea vomiting diarrhea or focal weakness or numbness. Upon chart review patient takes lithium 300 mg at home this dose was increased during her admission to [facility] to 300 mg 3 times daily, and her effexor dose was increased to 150 mg in am, and 75 mg at night. [place] level reported at 2.7. Patient will be admitted to hospitalist service for management of encephalopathy/AMS possibly 2/2 lithium toxicity . PLAN: #. Encephalopathy/AMS - possible 2/2 lithium toxicity - lithium increased from 300 mg daily to 300 mg TID during [facility] stay - [place] level elevated 2.89. Has now down trended to 1.81 - spoke to Poison Control, recommendation to repeat Li level in 4 hours, continue to trend q6h. - monitor renal function, wnl at present. - EKG showing sinus bradycardia with QTC prolongation to 540 - Continue with IV fluids at 150 cc/h - monitor for onset of diabetes insipidus, hyponatremia - patient is more alert and active. -The head and abdomen showed no acute abnormality - LA wnl. -Urinalysis is negative for for infection. Blood cultures from 06/04/2021 are prelim negative at 24 hours. #SI - maintain 1:1 sitter. # Fibromyalgia Continue acetaminophen as needed # Restless leg syndrome Continue ropinirole # Hypertension - will hold HCTZ and propranolol due to potential for lithium to cause bradycard ia and renal failure. # Low back pain May use acetaminophen prn VS, I&O, 24H, [facility] Vital Signs/I&O Vital Signs Date Time Temp Pulse Resp B/P (MAP) Pulse Ox O2 Delivery O2 Flow Rate FiO2 05/05/21 12:00 98.6 70 16 104/60 (75) 99 Room Air I&O- Last 24 Hours up to 6 AM 05/05/21 05:59 Intake Total 2600 ml Output Total 300 ml Balance 2300 ml Laboratory Data 24H LABS Laboratory Tests 2 05/04/21 16:24: Anion Gap 6L, Glomerular Filtration Rate 54.7, Calcium Level 9.5, Total Bilirubin 1.9H, Aspartate Amino Transf (AST/SGOT) 16, Alanine Aminotransferase (ALT/SGPT) 28, Alkaline Phosphatase 151H, Total Protein 6.3L, Albumin 3.6, Album in/Globulin Ratio 1.3, [place] Level 2.90*H 05/04/21 18:30: Bedside Glucose (Misc Panel) 73 05/04/21 21:07: Urine Color YELLOW, Urine Appearance HAZY, Urine pH 6.0, Urine Specific [place] 1.015, Urine Protein NEGATIVE, Urine Glucose (UA) NEGATIVE, Urine Ketones 1+H, Urine Blood NEGATIVE, Urine Nitrite NEGATIVE, Urine Bilirubin NEGATIVE, Urine Urobilinogen 2.0H, Urine Leukocyte Esterase NEGATIVE, Urine WBC (Auto) 2, Urine RBC (Auto) 2, Urine Hyaline Casts (Auto) 1, Urine Bacteria (Auto) NEGATIVE, Urine Squamous Epithelial Cells 3, Urine Sperm (Auto) 05/04/21 23:20: [place] Level 2.33*H 05/05/21 00:48: Bedside Glucose (Misc Panel) 139H 05/05/21 04:59: Immature Granulocyte % (Auto) 0.2, Neutrophils (%) (Auto) 62.8, Lymphocytes (%) (Auto) 28.8, Monocytes (%) (Auto) 6.4, Eosinophils (%) (Auto) 1.6, Basophils (%) (Auto) 0.2, Neutrophils # (Auto) 3.8, Lymphocytes # (Auto) 1.8, Monocytes # (Auto) 0.4, Eosinophils # (Auto) 0.1, Basophils # (Auto) 0.0, Nucleated Red Blood Cells % (auto) 0.0, Anion Gap 4L, Glomerular Filtration Rate > 60.0, Calcium Level 8.3L, Magnesium Level 1.8, Total Bilirubin 1.0, Aspartate Amino Transf (AST/SGOT) 11, Alanine Aminotransferase (ALT/SGPT) 20, Alkaline Phosphatase 133H, Total Protein 5.0#L, Albumin 2.7#L, Albumin/Globulin Ratio 1.2, [place] Level 2.10*H 05/05/21 06:10: Bedside Glucose (Misc Panel) 87 05/05/21 12:58: [place] Level 1.83H CBC/BMP Laboratory Tests 05/04/21 16:24 05/05/21 04:59 LORNA CALVERT MD May 05, 2021 14:26
[2021-05-05 16:00] VITALS: BP 105/57
[2021-05-05 19:53] VITALS: BP 100/59
[2021-05-06] VITALS (8 sets, daily range): BP systolic 91–141; BP diastolic 53–73
[2021-05-06] MEDS: NS 1,000 ML IV SCH ×4 (02:23→21:30)
[2021-05-06 05:00] LABS: BASO % 0.4 % (0.0-1.0); EOS # 0.1 10^3/uL (0.0-0.5); EOS % 2.2 % (0.0-3.0); HEMOGLOBIN 10.5 g/dl (12.0-15.5); LYMPH # 1.6 10^3/uL (1.5-5.0); LYMPH % 35.3 % (24.0-44.0); MEAN CORPUSCULAR HEMOGLOBIN 31.2 pg (27.0-33.0); MEAN CORPUSCULAR HGB CONC 33.9 g/dl (32.0-36.5); MONO # 0.3 10^3/uL (0.0-0.8); MONO % 6.1 % (2.0-8.0); NEUTROPHILS # 2.5 10^3/uL (1.5-8.5); NEUTROPHILS % 55.8 % (36.0-66.0); PLATELET COUNT, AUTOMATED 114 10^3/uL (150-450); RED BLOOD COUNT 3.37 10^6/uL (4.00-5.40); WHITE BLOOD COUNT 4.6 10^3/uL (4.0-10.0)
[2021-05-06] MEDS: HEPARIN SOD (PORCINE) 5000UNITS/ML 1ML VIAL/SYRINGE SC SCH ×3 (05:23→21:29)
[2021-05-06 05:33] LABS: ALBUMIN 2.4 GM/DL (3.2-5.2); ALT/SGPT 19 U/L (12-78); BILIRUBIN,TOTAL 0.8 MG/DL (0.2-1.0); BLOOD UREA NITROGEN 10 MG/DL (7-18); CALCIUM LEVEL 8.3 MG/DL (8.5-10.1); CARBON DIOXIDE LEVEL 28 MEQ/L (21-32); CHLORIDE LEVEL 115 MEQ/L (98-107); CREATININE FOR GFR 0.72 MG/DL (0.55-1.30); GLOMERULAR FILTRATION RATE > 60.0 (>51); GLUCOSE, FASTING 82 MG/DL (70-100); MAGNESIUM LEVEL 1.8 MG/DL (1.8-2.4); POTASSIUM SERUM 4.1 MEQ/L (3.5-5.1); SODIUM LEVEL 144 MEQ/L (136-145); TOTAL PROTEIN 4.7 GM/DL (6.4-8.2)
[2021-05-06] MEDS: NYSTATIN 500,000 U/5 ML SUSP UDC SS SCH ×2 (08:37→21:30)
[2021-05-06 09:02] LABS: LITHIUM LEVEL 1.28 MEQ/L (0.60-1.20)
--- NOTE | 2021-05-06 09:11 | ECGEPIP ---
[facility] Test Date: 2021-05-05 Pat Name: MARGO KAPOOR Department: Room: [place] [address] Gender: Female Vehicle Operator Technician: VANE DOYLE : 1960 Requested By: LORNA CALVERT Order Number: [id number] Reading MD: Hakan Cazares Measurements Intervals [place] Rate: 53 P: 70 [place]: 160 QRS: 13 QRSD: 80 T: 54 QT: 534 QTc: 501 Interpretive Statements Sinus bradycardia Prolonged QTc interval decreased from tracing done 05-04-21 rate decreased from tracing done 05-04-21 Electronically Signed on 05-06-2021 9:10:57 EDT by Hakan Cazares
--- NOTE | 2021-05-06 09:12 | ECGEPIP ---
[facility] Test Date: 2021-05-05 Pat Name: MARGO KAPOOR Department: Room: [place] [address] Gender: Female Platform Software Engineer: ÁNGEL : 1960 Requested By: LORNA CALVERT Order Number: [id number] Reading MD: Hakan Cazares Measurements Intervals [place] Rate: 75 P: 75 [place]: 162 QRS: 37 QRSD: 66 T: 71 QT: 434 QTc: 484 Interpretive Statements Normal sinus rhythm Low voltage QRS Prolonged QTc interval decreased from tracing done 617 on same date Electronically Signed on 05-06-2021 9:11:51 EDT by Hakan Cazares
--- NOTE | 2021-05-06 10:19 | IPNPDOC ---
Date Seen The patient was seen on 05/06/21. Progress Note SUBJECTIVE: Patient seen and examined at bedside this morning. No acute events overnight. EKG repeated, showing qtc prolongation to 484, but improved from prior. [place] level declining, today 1.28. Patient is AAO x 3. Afraid to take any additional lithium. Has appetite. Denies CP, SOB, palpitations, fasciculation, seizures. OBJECTIVE PHYSICAL EXAMINATION: VITAL SIGNS: please see below General: NAD, comfortable HEENT: PERRLA, EOMI, sclerae clear Neck: supple, normal ROM, no JVD Respiratory: lungs CTAB, no wheeze, no rales, no crackles CVS: RRR, normal S1, S2, no murmurs Abdo: soft, no masses, no hepatosplenomegaly, BS+, no rebound tenderness Extremities: no edema, pulses 2+ MSK: no joint deformities, normal ROM Neuro: no focal neuro deficits, moving all 4 extremities, CN2-12 intact. Strength 5/5 in all 4 extremities. No nystagmus. No tremulousness, no hyper- reflexia. Psych: calm, cooperative, AAO x 3 LABORATORY DATA, IMAGING STUDIES, MICROBIOLOGY: Please see below. DVT prophylaxis ordered?: Heparin 5000 units every 8 subcu ASSESSMENT: 59-year-old female with a past medical history of RLS, fibromyalgia, rheumatoid arthritis was admitted to [facility] on April 26 for suicidal ideation. I was called to assess the patient as she had developed confusion weakness lethargy and slurred speech earlier this morning. She was unable to feed herself or rise from bed. Upon my evaluation patient was awake and alert to person however was slightly confused to place and time. Patient was able to follow my commands and answer my questions appropriately. She states that she has no chest pain palpitations nausea vomiting diarrhea or focal weakness or numbness. Upon chart review patient takes lithium 300 mg at home this dose was increased during her admission to [facility] to 300 mg 3 times daily, and her effexor dose was increased to 150 mg in am, and 75 mg at night. [place] level reported at 2.7. Patient will be admitted to hospitalist service for management of encephalopathy/AMS possibly 2/2 lithium toxicity . PLAN: #. Encephalopathy/AMS - possible 2/2 lithium toxicity - lithium increased from 300 mg daily to 300 mg TID during [facility] stay - [place] level elevated 2.89. Has now trended down to 1.28. - Poison control of [place] consulted. - monitor renal function, wnl at present. No hyponatremia. - Trend EKG QTc prolongation has improved to 484. - Continue with IV fluids at 150 cc/h - monitor for onset of diabetes insipidus, hyponatremia - patient is more alert and active. - The head and abdomen showed no acute abnormality - LA wnl. - Urinalysis is negative for for infection. Blood cultures from 06/04/2021 are prelim negative at 24 hours. #. Fibromyalgia Continue acetaminophen as needed Continue antidepressants #. Restless leg syndrome Continue ropinirole #. Hypertension Continue hydrochlorothiazide and propranolol #. Low back pain May use acetaminophen and ibuprofen as needed Added on lidocaine patch Dispo: D/w Dr. Donnelly of psychiatry, plan is to DC to to [facility] once medically stable. Expect to DC on 05/07/21. VS, I&O, 24H, [facility] Vital Signs/I&O Vital Signs Date Time Temp Pulse Resp B/P (MAP) Pulse Ox O2 Delivery O2 Flow Rate FiO2 05/06/21 07:24 98.1 61 18 110/69 (83) 95 Room Air I&O- Last 24 Hours up to 6 AM 05/06/21 06:00 Intake Total 1080 ml Output Total 2100 ml Balance -1020 ml Laboratory Data 24H LABS Laboratory Tests 2 05/05/21 12:58: [place] Level 1.83H 05/05/21 17:00: Bedside Glucose (Misc Panel) 85 05/06/21 00:04: Bedside Glucose (Misc Panel) 78 05/06/21 04:49: [place] Level 1.28H, Immature Granulocyte % (Auto) 0.2, Neutrophils (%) (Auto) 55.8, Lymphocytes (%) (Auto) 35.3, Monocytes (%) (Auto) 6.1, Eosinophils (%) (Auto) 2.2, Basophils (%) (Auto) 0.4, Neutrophils # (Auto) 2.5, Lymphocytes # (Auto) 1.6, Monocytes # (Auto) 0.3, Eosinophils # (Auto) 0.1, Basophils # (Auto) 0.0, Nucleated Red Blood Cells % (auto) 0.0, Anion Gap 1L, Glomerular Filtration Rate > 60.0, Calcium Level 8.3L, Magnesium Level 1.8, Total Bilirubin 0.8, Aspartate Amino Transf (AST/SGOT) 6L, Alanine Aminotransferase (ALT/SGPT) 19, Alkaline Phosphatase 137H, Total Protein 4.7L, Albumin 2.4L, Albumin/Globulin Ratio 1.0L 05/06/21 05:21: Bedside Glucose (Misc Panel) 76 CBC/BMP Laboratory Tests 05/06/21 04:49 LORNA CALVERT MD May 06, 2021 10:19
--- NOTE | 2021-05-06 16:53 | ECGEPIP ---
[facility] Test Date: 2021-05-06 Pat Name: MARGO KAPOOR Department: Room: [place] [address] Gender: Female Deputy Program Manager: ÁNGEL : 1960 Requested By: LORNA CALVERT Order Number: [id number] Reading MD: Hakan Cazares Measurements Intervals [place] Rate: 66 P: 73 [place]: 152 QRS: -25 QRSD: 74 T: 252 QT: 438 QTc: 459 Interpretive Statements Normal sinus rhythm Low voltage QRS Nonspecific T wave abnormality QTc normalized from tracing done 05-05-21 Electronically Signed on 05-06-2021 16:53:39 EDT by Hakan Cazares
[2021-05-07] VITALS: BP 123/73
[2021-05-07 04:00] VITALS: BP 129/75
[2021-05-07] MEDS: NS 1,000 ML IV SCH ×2 (05:21→13:46)
[2021-05-07 05:54] LABS: BASO % 0.2 % (0.0-1.0); EOS % 0.8 % (0.0-3.0); HEMATOCRIT 33.9 % (36.0-47.0); HEMOGLOBIN 11.4 g/dl (12.0-15.5); LYMPH # 0.9 10^3/uL (1.5-5.0); LYMPH % 17.5 % (24.0-44.0); MEAN CORPUSCULAR HGB CONC 33.6 g/dl (32.0-36.5); MEAN CORPUSCULAR VOLUME 92.1 fl (80.0-96.0); MONO # 0.3 10^3/uL (0.0-0.8); MONO % 5.6 % (2.0-8.0); NEUTROPHILS # 3.8 10^3/uL (1.5-8.5); NEUTROPHILS % 75.7 % (36.0-66.0); PLATELET COUNT, AUTOMATED 127 10^3/uL (150-450); RED BLOOD COUNT 3.68 10^6/uL (4.00-5.40)
[2021-05-07 06:20] LABS: ALBUMIN 2.7 GM/DL (3.2-5.2); ALT/SGPT 18 U/L (12-78); BILIRUBIN,TOTAL 0.8 MG/DL (0.2-1.0); BLOOD UREA NITROGEN 7 MG/DL (7-18); CALCIUM LEVEL 8.1 MG/DL (8.5-10.1); CARBON DIOXIDE LEVEL 27 MEQ/L (21-32); CHLORIDE LEVEL 113 MEQ/L (98-107); CREATININE FOR GFR 0.58 MG/DL (0.55-1.30); GLOMERULAR FILTRATION RATE > 60.0 (>51); GLUCOSE, FASTING 101 MG/DL (70-100); MAGNESIUM LEVEL 1.5 MG/DL (1.8-2.4); POTASSIUM SERUM 3.7 MEQ/L (3.5-5.1); SODIUM LEVEL 145 MEQ/L (136-145)
[2021-05-07 08:00] VITALS: BP 146/76
[2021-05-07] MEDS: HEPARIN SOD (PORCINE) 5000UNITS/ML 1ML VIAL/SYRINGE SC SCH ×2 (08:27→14:53)
[2021-05-07] MEDS: NYSTATIN 500,000 U/5 ML SUSP UDC SS SCH (08:27)
[2021-05-07] MEDS: MAG SULF 1GM/100ML (MAG RUN) 1 GM in IV 1 EA IV SCH ×2 (08:28→10:27)
[2021-05-07 12:00] VITALS: BP 130/72
[2021-05-07] MEDS ORDERED: ONDANSETRON 4MG/2ML VIAL IV ONE (14:15)
--- NOTE | 2021-05-07 14:59 | DS.PDOC ---
Discharge Summary General Date of Admission May 04, 2021 at 15:20 Date of Discharge 05/07/21 Discharge Summary PROCEDURES PERFORMED DURING STAY: [None]. ADMITTING DIAGNOSES: Learned toxicity RLS Bipolar 2 RA Fibromyalgia DISCHARGE DIAGNOSES: Learned toxicity RLS Bipolar 2 RA Fibromyalgia COMPLICATIONS/CHIEF COMPLAINT: Learned Toxicity. HISTORY OF PRESENT ILLNESS: 59-year-old female with a past medical history of RLS, fibromyalgia, rheumatoid arthritis was admitted to [facility] on April 26 for suicidal ideation. I was called to assess the patient as she had developed confusion weakness lethargy and slurred speech earlier this morning. She was unable to feed herself or rise from bed. Upon my evaluation patient was awake and alert to person however was slightly confused to place and time. Patient was able to follow my commands and answer my questions appropriately. She states that she has no chest pain palpitations nausea vomiting diarrhea or focal weakness or numbness. Upon chart review patient takes lithium 300 mg at home this dose was increased during her admission to [facility] to 300 mg 3 times daily, and her effexor dose was increased to 150 mg in am, and 75 mg at night. Learned level reported at 2.7. Patient will be admitted to hospitalist service for management of encephalopathy/AMS possibly 2/2 lithium toxicity. HOSPITAL COURSE: #. Encephalopathy/AMS - possible 2/2 lithium toxicity - lithium increased from 300 mg daily to 300 mg TID during [facility] stay - Learned level elevated 2.89. - Poison control of [facility] consulted. - monitor renal function, wnl at present. No hyponatremia. - Trend EKG QTc prolongation has improved to 484. - received IVF at 1.5-2.0x of maintenance. - Li trended down to 0.67 - monitor for onset of diabetes insipidus, hyponatremia - patient is more alert and active. - The head and abdomen showed no acute abnormality - LA wnl. CT head and abdo/pelvis negative for acute pathology - Urinalysis is negative for for infection. Blood cultures from 06/04/2021 are prelim negative at 72 hours. - Patient examined by Dr. Mix. Will be discharged to [facility] on 05/07/21. # Fibromyalgia Continue acetaminophen as needed # Restless leg syndrome Continue ropinirole #Suprapubic mass - patient is thin, this could represent distended bladder, possibly uterus - CT abdo pelvis did not visualize pelvic structures due to artifact from bilateral hip arthroplasty - will obtain pelvic NON OB US, to f/u report on DC. # Hypertension - held HCTZ and propranolol due to potential for lithium to cause bradycardia and renal failure. - will resume HCTZ on DC. Resume propranolol upon PCP f/u. # Low back pain May use acetaminophen prn DISCHARGE MEDICATIONS: Please see below. ALLERGIES: Please see below. PHYSICAL EXAMINATION ON DISCHARGE: VITAL SIGNS: please see below General: NAD, comfortable HEENT: PERRLA, EOMI, sclerae clear Neck: supple, normal ROM, no JVD Respiratory: lungs CTAB, no wheeze, no rales, no crackles CVS: RRR, normal S1, S2, no murmurs Abdo: soft, suprapubic mass, non tender, no hepatosplenomegaly, BS+, no rebound tenderness Extremities: no edema, pulses 2+ MSK: no joint deformities, normal ROM Neuro: no focal neuro deficits, moving all 4 extremities, CN2-12 intact. Strength 5/5 in all 4 extremities. No nystagmus. No tremulousness, no hyper- reflexia. Psych: calm, cooperative, AAO x 3 LABORATORY DATA: Please see below. IMAGING: Liver US (05/04/21): IMPRESSION: Evidence for prior cholecystectomy. Otherwise normal right upper quadrant ultrasound. CT abdo pelvis wo contrast (05/04/21); IMPRESSION: 1. No evidence of rectus sheath hematoma or subcutaneous suprapubic mass. The intrapelvic structures are difficult to assess because of bilateral hip arthroplasty artifact. 2. No evidence of renal stone or obstruction or bowel obstruction CT head wo contrast (05/04/21): IMPRESSION: No acute or concerning focal intracranial abnormality. PROGNOSIS: good ACTIVITY: As tolerated DIET: as tolerated DISCHARGE PLAN: DC to [facility]. Avoid lithium. Continue to monitor vitals daily. DISPOSITION: DC to [facility]. DISCHARGE INSTRUCTIONS: Hold propranolol. ITEMS TO FOLLOWUP ON ON OUTPATIENT: F/u final blood cx. Obtain pelvic US to assess suprapubic mass, not seen on CT due to bilateral hip arthroplasty artifact. DISCHARGE CONDITION: [Stable]. TIME SPENT ON DISCHARGE: 35 minutes Vital Signs/I&Os Vital Signs Date Time Temp Pulse Resp B/P (MAP) Pulse Ox O2 Delivery O2 Flow Rate FiO2 05/07/21 12:00 98.8 67 18 130/72 (91) 99 Room Air I&O- Last 24 Hours up to 6 AM 05/07/21 05:59 Intake Total 3660 ml Output Total 2350 ml Balance 1310 ml Laboratory Data Labs 24H Laboratory Tests 2 05/06/21 17:26: Bedside Glucose (Misc Panel) 99 05/06/21 19:30: Learned Level 0.83 05/07/21 00:15: Learned Level 0.67 05/07/21 04:40: Immature Granulocyte % (Auto) 0.2, Neutrophils (%) (Auto) 75.7H, Lymphocytes (%) (Auto) 17.5L, Monocytes (%) (Auto) 5.6, Eosinophils (%) (Auto) 0.8, Basophils (%) (Auto) 0.2, Neutrophils # (Auto) 3.8, Lymphocytes # (Auto) 0.9L, Monocytes # (Auto) 0.3, Eosinophils # (Auto) 0.0, Basophils # (Auto) 0.0, Nucleated Red Blood Cells % (auto) 0.0, Anion Gap 5L, Glomerular Filtration Rate > 60.0, Calcium Level 8.1L, Magnesium Level 1.5L, Total Bilirubin 0.8, Aspartate Amino Transf (AST/SGOT) 10, Alanine Aminotransferase (ALT/SGPT) 18, Alkaline Phosphatase 149H, Total Protein 5.0L, Albumin 2.7L, Albumin/Globulin Ratio 1.2 05/07/21 11:39: Bedside Glucose (Misc Panel) 104 CBC/BMP Laboratory Tests 05/07/21 04:40 FSBS Laboratory Tests Test 05/06/21 17:26 05/07/21 11:39 Range/Units Bedside Glucose (Misc Panel) 99 104 70-105 MG/DL Discharge Medications Scheduled Hydrochlorothiazide (Hydrochlorothiazide) 12.5 Mg Tablet, 25 MG PO DAILY Nystatin (Nystatin Oral Susp) 100,000 Unit/1 Ml Oral.susp, 5 ML SS BID Ropinirole HCl (Ropinirole HCl) 0.5 Mg Tablet, 0.5 MG PO TID Scheduled PRN Acetaminophen (Acetaminophen) 325 Mg Tablet, 650 MG PO Q4H PRN for MILD PAIN or TEMP > 101 Allergies Coded Allergies: diphenhydramine (Verified Allergy, Unknown, 04/26/21) LORNA CALVERT MD May 07, 2021 14:59
[2021-05-07] MEDS ORDERED: ACET1TAB55 PO (15:01)
[2021-05-07] MEDS ORDERED: NYST50SS SS (15:01)
[2021-05-07] MEDS ORDERED: HYDR12.55 PO (15:03)
[2021-05-07] MEDS ORDERED: ROPI0.5T3 PO (15:10)
[2021-05-07 16:00] VITALS: BP 124/73
--- NOTE | 2021-05-07 18:00 | REP ---
INDICATION: assess suprapubic mass, CT not visualized due to hip hardware. COMPARISON: CT 05/04/2021. TECHNIQUE: Transabdominal scanning performed. FINDINGS: Uterine dimensions are 6.9 x 2.8 x 4.7 cm. Endometrial echo is 3 mm in AP dimension and centrally placed. The bladder measures 9.0 x 4.2 x 10.1cm. The right ovary has dimensions of 2.1 x 1.1 x 2.0 cm. It's Doppler flow is normal with a resistive index of 0.75. The left ovary is reportedly surgically absent. There is no adnexal mass identified. No free fluid is seen in the cul-de-sac. IMPRESSION: Negative pelvic ultrasound. <Electronically signed by Rhys Machuca > 05/07/21 0192
== END 2021-05-07 18:17 | DRG 271 ==
LOC: M PCU 15:20
PROVIDERS: ADMIT Family Medicine; ATTEND Family Medicine
DX: T43.591A Poisoning by other antipsychotics and neuroleptics, accidental (unintentional), initial encounter (principal); F31.81 Bipolar II disorder; G25.81 Restless legs syndrome; M79.7 Fibromyalgia; R41.82 Altered mental status, unspecified; M54.50 Low back pain, unspecified; G92.8 Other toxic encephalopathy; Z96.643 Presence of artificial hip joint, bilateral; Z98.84 Bariatric surgery status

== ENCOUNTER 2021-05-07 15:15 | Inpatient (IN) | payer OTHER ==
[~2021-05-07] VITALS: Ht 162.6 cm; Wt 48.0 kg
[~2021-05-07 15:15] MED LIST changes: +ACET1TAB55 PO; +HYDR12.55 PO; +NYST50SS SS; +ROPI0.5T3 PO
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
[2021-05-07] MEDS ORDERED: MOM 30ML SUSPENSION UDC PO PRN (15:40)
[2021-05-07] MEDS ORDERED: ACETAMINOPHEN TAB 650MG DOSE (2X325MG) PO PRN (15:40)
[2021-05-07] MEDS ORDERED: MAALOX 30 ML SUSP *UDC PO PRN (15:40)
[2021-05-07 18:27] VITALS: BP 140/84
[2021-05-07] MEDS ORDERED: ONDANSETRON 4 MG ORAL DISINTEGRATING TAB SL PRN (21:20)
[2021-05-07] MEDS: rOPINIRole 0.25 MG TAB(REQUIP) PO SCH (23:39)
[2021-05-07] MEDS: NYSTATIN 500,000 U/5 ML SUSP UDC SS SCH (23:39)
[2021-05-07] MEDS: traZODone 50 MG TAB PO PRN (23:48)
[2021-05-08 06:41] VITALS: BP 140/76
[2021-05-08] MEDS ORDERED: hydroCHLOROthiazide 12.5 MG CAPSULE PO SCH (09:00)
[2021-05-08] MEDS: NYSTATIN 500,000 U/5 ML SUSP UDC SS SCH ×2 (09:41→20:56)
[2021-05-08] MEDS: rOPINIRole 0.25 MG TAB(REQUIP) PO SCH ×2 (09:41→20:57)
[2021-05-08] MEDS ORDERED: VENLAFAXINE 37.5 MG TAB PO ONE (10:15)
[2021-05-08] MEDS: clonazePAM 1 MG TAB PO SCH ×3 (11:14→20:56)
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
[2021-05-08 19:08] VITALS: BP 120/76
--- NOTE | 2021-05-08 20:16 | HPEPDOC ---
General Date of Admission May 07, 2021 at 18:20 Date of Service: May 08, 2021 Chief Complaint The patient is a 61-year-old female admitted with a reason for visit of Major Depressive Order. Source: Patient History of Present Illness Patient is 61 years old female with past medical history of bipolar disorder who who was originally admitted to the unit on 04/26/2021-05/04/2021 for suicidal ideations after she was brought in by police. On 05/04/2021 she was admitted to medical for a lithium toxicity of 2.86. At which time the lithium was discontinued, as well as Effexor and clonazepam. During my interview patient denied fever, chills, nausea, syncope diarrhea dysuria Home Medications Scheduled Hydrochlorothiazide (Hydrochlorothiazide) 12.5 Mg Tablet, 25 MG PO DAILY Nystatin (Nystatin Oral Susp) 100,000 Unit/1 Ml Oral.susp, 5 ML SS BID Ropinirole HCl (Ropinirole HCl) 0.5 Mg Tablet, 0.5 MG PO TID Scheduled PRN Acetaminophen (Acetaminophen) 325 Mg Tablet, 650 MG PO Q4H PRN for MILD PAIN or TEMP > 101 Allergies Coded Allergies: diphenhydramine (Verified Allergy, Unknown, 04/26/21) Past Medical History Medical History Bipolar disorder, fibromyalgia, rheumatoid arthritis, restless leg syndrome Surgical History Bilateral hip replacement Family History History of bipolar and substance abuse per chart review in father Social History * Smoker: Denies Alcohol: Denies Drugs: denies A-FIB/CHADSVASC A-FIB History Current/History of A-Fib/PAF?: No Current PO Anticoag Therapy: No Review of Systems Constitutional: Denies: Chills, Fever Eyes: Denies: Pain ENT: Denies: Head Aches Skin: Denies: Rash Pulmonary: Denies: Dyspnea Cardiovascular: Denies: Chest Pain Gastrointestinal: Denies: Nausea Genitourinary: Denies: Dysuria Hematologic: Denies: Bruising Musculoskeletal: Denies: Neck Pain Neurological: Denies: Weakness Psych: Reports: Depression Physical Examination General Exam: Positive: Alert, Cooperative Eye Exam: Positive: PERRLA ENT Exam: Positive: Pinna Normal Neck Exam: Positive: Supple; Negative: JVD Chest Exam: Positive: Clear to auscultation Heart Exam: Positive: Rate Normal Telemetry: Positive: No significant arrhythmia Abdomen Exam: Positive: Normal bowel sounds Extremity Exam: Negative: Clubbing Skin Exam: Positive: Nl turgor and temperature Neuro Exam: Positive: Cranial Nerves 3-12 NL Psych Exam: Positive: Oriented x 3 Vital Signs Vital Signs Date Time Temp Pulse Resp B/P (MAP) Pulse Ox O2 Delivery O2 Flow Rate FiO2 05/08/21 19:08 99.1 84 16 120/76 (91) 05/08/21 10:14 Room Air 05/08/21 06:41 99 Assessment/Plan Patient is 61 years old female with past medical history of bipolar disorder who who was originally admitted to the unit on 04/26/2021-05/04/2021 for suicidal ideations after she was brought in by police. On 05/04/2021 she was admitted to medical for a lithium toxicity of 2.86. At which time the lithium was discontinued, as well as Effexor and clonazepam. During my interview patient denied fever, chills, nausea, syncope diarrhea dysuria Problems (1) Bipolar disorder Status: Chronic Problem Text: Defer treatment to psych team (2) Restless leg syndrome Status: Chronic Problem Text: Continue ropinirole Plan / VTE VTE Prophylaxis Ordered?: No VTE Exclusion Mechanical Proph: Low Risk for VTE VILLA CARR DO May 08, 2021 20:16
[2021-05-08] MEDS: traZODone 50 MG TAB PO PRN (20:57)
[2021-05-09 06:33] VITALS: BP 127/76
[2021-05-09] MEDS: NYSTATIN 500,000 U/5 ML SUSP UDC SS SCH ×2 (09:39→21:47)
[2021-05-09] MEDS: clonazePAM 1 MG TAB PO SCH ×3 (09:39→21:47)
--- NOTE | 2021-05-09 17:31 | MHIPN ---
[facility] PROGRESS NOTE DATE: 05/09/2021 VITAL SIGNS: Blood pressure 127/76, pulse 72, temperature 98.5. This is a video assessment, she is seen in the presence of staff, she is at the inpatient unit in the hospital, I am at the clinic. CHIEF COMPLAINT: Says feels better. SUBJECTIVE: Seen for followup. Indicates has been feeling better today than yesterday, feels more rested, improved, she says sleep was a bit better. Has felt nauseated, but has not vomited today. Says felt quite tired. Has been on lithium for the last couple of years, says has had bipolar disorder for the last 20 years, per the patient. MENTAL STATUS EXAMINATION: She is neat, cooperative, no agitation, no psychomotor retardation, appears a bit tired, coherent. Affect is reactive. Denies any suicidal thoughts or intents, no homicidal ideas or intents, no evidence of any psychosis. Cognition grossly intact. Judgment and insight fair. ASSESSMENT: Bipolar disorder. She is recovering from being treated for lithium toxicity. Does not wish for the lithium to be resumed, which I think is quite reasonable. PLAN: Continue current care, observations, and consider using a mood stabilizer other than lithium. May need to wait for a while before doing that, given what she has been through recently, and is recovering from. Suggest continuing with Effexor at the current dose, but would not be too quick to increase it, and in fact may need to consider reassessing its indications, particularly if she is going to be on a mood stabilizer. Encourage participation in activities in the unit. Further recommendations will be made depending on the clinical picture, and she will see her clinician tomorrow.
[2021-05-09 17:45] VITALS: BP 123/81
[2021-05-09] MEDS: rOPINIRole 0.25 MG TAB(REQUIP) PO SCH (21:47)
[2021-05-09] MEDS: traZODone 50 MG TAB PO PRN (21:48)
[2021-05-10 06:09] VITALS: BP 111/56
[2021-05-10] MEDS: clonazePAM 1 MG TAB PO SCH ×3 (08:19→20:56)
[2021-05-10] MEDS: VENLAFAXINE **XR** 75MG CAPSULE PO SCH (08:19)
[2021-05-10] MEDS: NYSTATIN 500,000 U/5 ML SUSP UDC SS SCH ×2 (08:20→20:56)
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
[2021-05-10 17:57] VITALS: BP 146/86
[2021-05-10] MEDS: traZODone 50 MG TAB PO PRN (20:56)
[2021-05-10] MEDS: rOPINIRole 0.25 MG TAB(REQUIP) PO SCH (20:56)
[2021-05-11] MEDS: clonazePAM 1 MG TAB PO SCH ×3 (09:04→20:27)
[2021-05-11] MEDS: VENLAFAXINE **XR** 75MG CAPSULE PO SCH (09:04)
[2021-05-11] MEDS: NYSTATIN 500,000 U/5 ML SUSP UDC SS SCH ×2 (09:04→20:27)
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
[2021-05-11 18:59] VITALS: BP 122/80
[2021-05-11 19:57] VITALS: BP 122/80
[2021-05-11] MEDS: traZODone 50 MG TAB PO PRN (20:27)
[2021-05-11] MEDS: rOPINIRole 0.25 MG TAB(REQUIP) PO SCH (20:27)
[2021-05-12 07:31] VITALS: BP 117/75
[2021-05-12] MEDS: NYSTATIN 500,000 U/5 ML SUSP UDC SS SCH (08:42)
[2021-05-12] MEDS: VENLAFAXINE **XR** 75MG CAPSULE PO SCH (08:45)
[2021-05-12] MEDS: clonazePAM 1 MG TAB PO SCH ×3 (08:45→20:58)
[2021-05-12 18:45] VITALS: BP 106/76
[2021-05-12] MEDS: rOPINIRole 0.25 MG TAB(REQUIP) PO SCH (20:58)
[2021-05-13 07:08] VITALS: BP 117/68
[2021-05-13] MEDS: clonazePAM 1 MG TAB PO SCH ×3 (08:26→20:22)
[2021-05-13] MEDS: VENLAFAXINE **XR** 75MG CAPSULE PO SCH (08:26)
[2021-05-13 18:42] VITALS: BP 112/80
[2021-05-13] MEDS: traZODone 50 MG TAB PO PRN (20:22)
[2021-05-13] MEDS: rOPINIRole 0.25 MG TAB(REQUIP) PO SCH (20:22)
[2021-05-14] MEDS: VENLAFAXINE **XR** 75MG CAPSULE PO SCH (08:41)
[2021-05-14] MEDS: clonazePAM 1 MG TAB PO SCH ×3 (08:41→20:10)
[2021-05-14 16:10] VITALS: BP 102/69
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
[2021-05-14] MEDS: rOPINIRole 0.25 MG TAB(REQUIP) PO SCH (20:10)
[2021-05-14] MEDS: traZODone 50 MG TAB PO PRN (20:10)
[2021-05-15 06:15] VITALS: BP 127/69
[2021-05-15] MEDS: clonazePAM 1 MG TAB PO SCH ×3 (09:26→20:21)
[2021-05-15] MEDS: VENLAFAXINE **XR** 75MG CAPSULE PO SCH (09:26)
[2021-05-15 16:18] VITALS: BP 118/83
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
[2021-05-15] MEDS: rOPINIRole 0.25 MG TAB(REQUIP) PO SCH (20:21)
[2021-05-15] MEDS: traZODone 50 MG TAB PO PRN (20:21)
[2021-05-16 06:25] VITALS: BP 107/67
[2021-05-16] MEDS: VENLAFAXINE **XR** 75MG CAPSULE PO SCH (08:06)
[2021-05-16] MEDS: clonazePAM 1 MG TAB PO SCH ×3 (08:06→20:04)
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
[2021-05-16 16:30] VITALS: BP 111/82
[2021-05-16] MEDS: rOPINIRole 0.25 MG TAB(REQUIP) PO SCH (20:04)
[2021-05-16] MEDS: traZODone 50 MG TAB PO PRN (20:04)
[2021-05-17 07:09] VITALS: BP 135/86
[2021-05-17] MEDS: VENLAFAXINE **XR** 75MG CAPSULE PO SCH (08:41)
[2021-05-17] MEDS: clonazePAM 1 MG TAB PO SCH ×3 (08:41→20:52)
[2021-05-17] MEDS ORDERED: ROPI0.253 PO (10:45)
[2021-05-17] MEDS ORDERED: VENL75CA47 PO (10:45)
[2021-05-17] MEDS ORDERED: CLON1TAB8 PO (10:45)
[2021-05-17] MEDS ORDERED: HYDR-3490 PO (10:45)
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
[2021-05-17 15:32] VITALS: BP 112/80
[2021-05-17] MEDS: rOPINIRole 0.25 MG TAB(REQUIP) PO SCH (20:52)
[2021-05-17] MEDS: traZODone 50 MG TAB PO PRN (20:52)
[2021-05-18 06:37] VITALS: BP 142/87
[2021-05-18] MEDS: clonazePAM 1 MG TAB PO SCH (08:35)
[2021-05-18] MEDS: VENLAFAXINE **XR** 75MG CAPSULE PO SCH (08:35)
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
[2021-05-18] MEDS ORDERED: TRAZ-252 PO (10:48)
== END 2021-05-18 11:07 | disposition home or self-care (01) | DRG 885 ==
LOC: M PSY 18:20
PROVIDERS: ADMIT Student in an Organized Health Care Education/Training Program; ATTEND Psychiatry & Neurology Psychiatry
DX: F31.81 Bipolar II disorder (principal); M79.7 Fibromyalgia; M06.9 Rheumatoid arthritis, unspecified; G25.81 Restless legs syndrome; Z62.810 Personal history of physical and sexual abuse in childhood; Z81.8 Family history of other mental and behavioral disorders; Z81.3 Family history of other psychoactive substance abuse and dependence; Z79.899 Other long term (current) drug therapy; Z91.410 Personal history of adult physical and sexual abuse

== ENCOUNTER → 2022-10-23 | Outpatient (CLI) | payer OTHER ==
[~2022-10-23] MED LIST changes: -CETI-43 PO; +FLUT50SP17; -FLUTISP; +GNPTAB36 PO; +NYST-38 SS; -NYST50SS SS; +ROPI0.253 PO; +TRAZ-252 PO
[2022-10-23 16:49] LABS: ALBUMIN 3.7 G/DL (3.2-5.2); ALKALINE PHOSPHATASE 149 U/L (46-116); ALT/SGPT 39 U/L (7.0-40); AST/SGOT 18 U/L (<34); BILIRUBIN,TOTAL 0.9 MG/DL (0.3-1.2); BLOOD UREA NITROGEN 17 MG/DL (9-23); CALCIUM LEVEL 8.9 MG/DL (8.3-10.6); CARBON DIOXIDE LEVEL 32 MMOL/L (20-31); CHLORIDE LEVEL 105 MMOL/L (98-107); CHOLESTEROL LEVEL 158 MG/DL (<200); CHOLESTEROL RISK RATIO 2.69 (<5); CREATININE FOR GFR 0.84 MG/DL (0.55-1.30); GLOMERULAR FILTRATION RATE > 60.0 (>45); GLUCOSE, FASTING 85 MG/DL (74-106); HDL CHOLESTEROL 58.7 MG/DL (>40); LDL CHOLESTEROL 78.1 MG/DL (<100); NON-HDL-C 99.3 MG/DL; POTASSIUM SERUM 4.6 MMOL/L (3.5-5.1); SODIUM LEVEL 141 MMOL/L (136-145); TOTAL PROTEIN 6.1 G/DL (5.7-8.2); TRIGLYCERIDES LEVEL 106 MG/DL (<150)
[2022-10-23 16:53] LABS: THYROID STIMULATING HORMONE 2.463 uIU/ML (0.55-4.78)
[2022-10-23 16:54] LABS: TOTAL 25(OH) VITAMIN D 40.6 NG/ML (20.0-100.0)
[2022-10-23 16:55] LABS: VITAMIN B12 LEVEL 294 PG/ML (211-911)
[2022-10-23 17:16] LABS: HEMATOCRIT 39.5 % (36.0-47.0); HEMOGLOBIN 13.2 g/dl (12.0-15.5); MEAN CORPUSCULAR HEMOGLOBIN 33.1 pg (27.0-33.0); MEAN CORPUSCULAR HGB CONC 33.4 g/dl (32.0-36.5); PLATELET COUNT, AUTOMATED 206 10^3/uL (150-450); RED BLOOD COUNT 3.99 10^6/uL (4.00-5.40); WHITE BLOOD COUNT 4.8 10^3/uL (4.0-10.0)
[2022-10-23 17:18] LABS: C REACTIVE PROTEIN QUANTITATIV < 0.40 MG/DL (<1.0)
[2022-10-23 17:19] LABS: RHEUMATOID FACTOR QUANT 12.3 IU/ML (<14)
[2022-10-23 17:27] LABS: FOLATE 18.3 NG/ML (>5.4)
[2022-10-23 17:34] LABS: ERYTHROCYTE SEDIMENTATION RATE 1 mm/hr (0-30)
[2022-10-25 20:08] LABS: ANA (HEP2) Negative (.); CYCLIC CITRULLINATED PEPTIDE 5 units (0-19)
== END ==
LOC: M WUC 11:32
PROVIDERS: ATTEND Physician Assistant Medical
DX: E78.89 Other lipoprotein metabolism disorders (principal); I10 Essential (primary) hypertension; E04.1 Nontoxic single thyroid nodule; Z98.84 Bariatric surgery status; M17.0 Bilateral primary osteoarthritis of knee; E55.9 Vitamin D deficiency, unspecified; R74.8 Abnormal levels of other serum enzymes

== ENCOUNTER → 2023-08-18 | Outpatient (CLI) | payer OTHER ==
[~2023-08-18] MED LIST changes: -EFFE150C2 PO; +EFFE150C3 PO; -FLUT50SP17; +FLUTISP; -HYDR200T3; +HYDR200T46; -ROPI0.253 PO; -ROPI0.5T3 PO; +ROPI0.5T33 PO; -ROPI1TAB3 PO; +ROPI1TAB73 PO; +ROPI5TAB19 PO
== END ==
LOC: M WUC 10:28
PROVIDERS: ATTEND Student in an Organized Health Care Education/Training Program
DX: M79.671 Pain in right foot (principal); S92.411A Displaced fracture of proximal phalanx of right great toe, initial encounter for closed fracture; X58.XXXA Exposure to other specified factors, initial encounter; Y92.9 Unspecified place or not applicable; Y93.9 Activity, unspecified; Y99.9 Unspecified external cause status

== ENCOUNTER 2024-10-19 20:15 | Emergency (ER) | payer OTHER ==
[~2024-10-19] VITALS: Ht 162.6 cm; Wt 70.5 kg
[~2024-10-19 20:15] MED LIST changes: +LITH450T11 PO; -LITH45TASA PO; -ZOLP12.518 PO; +ZOLP12.535 PO
[2024-10-19 20:17] VITALS: BP 134/85; TEMP 98.2; O2SAT 98
[2024-10-19] MEDS: ACETAMINOPHEN 325 MG TAB PO ONE (22:16)
== END 2024-10-19 23:56 | disposition left against medical advice (07) ==
LOC: M ED 20:15
DX: F41.9 Anxiety disorder, unspecified (principal); I10 Essential (primary) hypertension; K21.9 Gastro-esophageal reflux disease without esophagitis; Z88.8 Allergy status to other drugs, medicaments and biological substances; Z79.1 Long term (current) use of non-steroidal anti-inflammatories (NSAID); Z79.899 Other long term (current) drug therapy; Z53.9 Procedure and treatment not carried out, unspecified reason

== ENCOUNTER 2024-11-02 17:10 | Emergency (ER) | payer OTHER ==
[~2024-11-02] VITALS: Ht 165.1 cm; Wt 70.4 kg
[2024-11-02 18:12] LABS: HEMATOCRIT 36.7 % (36.0-47.0); HEMOGLOBIN 13.4 g/dl (12.0-15.5); MEAN CORPUSCULAR HEMOGLOBIN 34.5 pg (27.0-33.0); MEAN CORPUSCULAR HGB CONC 36.5 g/dl (32.0-36.5); MEAN CORPUSCULAR VOLUME 94.6 fl (80.0-96.0); PLATELET COUNT, AUTOMATED 229 10^3/uL (150-450); RED BLOOD COUNT 3.88 10^6/uL (4.00-5.40); WHITE BLOOD COUNT 5.5 10^3/uL (4.0-10.0)
[2024-11-02 18:29] LABS: ETHYL ALCOHOL (ETHANOL) 0.004 % (0.000-0.010)
[2024-11-02 18:30] LABS: ALBUMIN 3.3 G/DL (3.2-5.2); ALKALINE PHOSPHATASE 185 U/L (35-104); ALT/SGPT 17 U/L (7.0-40); AST/SGOT 22 U/L (<34); BILIRUBIN,DIRECT 0.6 MG/DL (<0.4); BILIRUBIN,TOTAL 1.8 MG/DL (0.3-1.2); BLOOD UREA NITROGEN 9 MG/DL (9-23); CALCIUM LEVEL 8.4 MG/DL (8.3-10.6); CARBON DIOXIDE LEVEL 26 MMOL/L (20-31); CHLORIDE LEVEL 108 MMOL/L (98-107); CREATININE FOR GFR 0.72 MG/DL (0.55-1.30); GLOMERULAR FILTRATION RATE > 90.0 (>45); GLUCOSE, FASTING 93 MG/DL (74-106); POTASSIUM SERUM 3.5 MMOL/L (3.5-5.1); SALICYLATE LEVEL < 3.0 MG/DL (<30); SODIUM LEVEL 146 MMOL/L (136-145); TOTAL PROTEIN 5.8 G/DL (5.7-8.2)
[2024-11-02 18:33] LABS: THYROID STIMULATING HORMONE 2.003 uIU/ML (0.55-4.78)
[2024-11-02 18:40] LABS: AMPHETAMINES LEVEL URINE NEGATIVE (NEGATIVE); BARBITURATES URINE NEGATIVE (NEGATIVE); CANNABINOIDS URINE NEGATIVE (NEGATIVE); COCAINE METABOLITE URINE NEGATIVE (NEGATIVE); METHADONE URINE NEGATIVE (NEGATIVE); OPIATES URINE NEGATIVE (NEGATIVE); PHENCYCLIDINE URINE NEGATIVE (NEGATIVE)
[2024-11-02 18:42] LABS: BENZODIAZEPINES URINE POSITIVE (NEGATIVE)
[2024-11-02] MEDS ORDERED: CLON1TAB17 PO (18:55)
[2024-11-02] MEDS ORDERED: QUET1TAB17 PO (18:55)
[2024-11-02] MEDS ORDERED: VENL75CA2 PO (18:55)
[2024-11-02] MEDS ORDERED: VRAY4.5C PO (18:55)
[2024-11-02] MEDS ORDERED: QUET300T2 PO (18:55)
[2024-11-02] MEDS ORDERED: PROP80CA PO (18:55)
[2024-11-02] MEDS ORDERED: ROPI1TAB73 PO (18:55)
[2024-11-02] MEDS ORDERED: GABA-1172 PO (18:55)
[2024-11-02] MEDS ORDERED: MED REC CURRENTLY UNOBTAINABLE XX SCH (19:00)
[2024-11-02] MEDS ORDERED: GABAPENTIN 300 MG CAP PO ONE (22:45)
[2024-11-02] MEDS ORDERED: rOPINIRole 1MG TAB PO ONE (22:45)
[2024-11-02] MEDS: GABAPENTIN 300 MG CAP PO ONE (23:45)
[2024-11-02] MEDS: clonazePAM 1 MG TAB PO ONE (23:45)
[2024-11-02] MEDS: VENLAFAXINE **XR** 75MG CAPSULE PO ONE (23:45)
[2024-11-02] MEDS: rOPINIRole 1MG TAB PO ONE (23:45)
[2024-11-03 07:42] VITALS: BP 132/72; TEMP 99.1; O2SAT 99
[2024-11-03] MEDS ORDERED: HOME MED LIST COMPLETE! XX SCH (08:05)
[2024-11-03 10:13] VITALS: BP 132/72
[2024-11-03] MEDS: GABAPENTIN 300 MG CAP PO SCH (10:13)
[2024-11-03] MEDS: PROPRANOLOL 80MG LA CAP PO SCH (10:13)
[2024-11-03] MEDS: clonazePAM 1 MG TAB PO SCH (10:13)
[2024-11-03] MEDS: QUEtiapine FUMARATE 25 MG TAB PO SCH (10:13)
[2024-11-03] MEDS: VENLAFAXINE **XR** 75MG CAPSULE PO SCH (10:13)
[2024-11-03] MEDS: rOPINIRole 1MG TAB PO SCH (10:14)
[2024-11-03] MEDS ORDERED: QUEtiapine FUMARATE 100 MG TAB PO SCH (21:00)
== END 2024-11-03 13:18 | disposition home or self-care (01) ==
LOC: M ED 17:10
DX: F31.9 Bipolar disorder, unspecified (principal); Z88.8 Allergy status to other drugs, medicaments and biological substances; Z79.899 Other long term (current) drug therapy

== ENCOUNTER 2024-11-07 15:21 | Inpatient (IN) | payer OTHER ==
[~2024-11-07] VITALS: Ht 162.6 cm; Wt 68.8 kg
[~2024-11-07 15:21] MED LIST changes: +CLON1TAB17 PO; +GABA-1172 PO; +PROP80CA PO; +QUET1TAB17 PO; +QUET300T2 PO; +VENL75CA2 PO; +VRAY4.5C PO
[2024-11-07 16:12] LABS: BASO % 0.4 % (0.0-1.0); EOS # 0.1 10^3/uL (0.0-0.5); EOS % 1.1 % (0.0-3.0); HEMATOCRIT 38.1 % (36.0-47.0); HEMOGLOBIN 13.3 g/dl (12.0-15.5); LYMPH % 35.6 % (24.0-44.0); MEAN CORPUSCULAR HEMOGLOBIN 34.4 pg (27.0-33.0); MEAN CORPUSCULAR HGB CONC 34.9 g/dl (32.0-36.5); MEAN CORPUSCULAR VOLUME 98.4 fl (80.0-96.0); MONO # 0.4 10^3/uL (0.0-0.8); MONO % 7.9 % (2.0-8.0); NEUTROPHILS # 3.1 10^3/uL (1.5-8.5); NEUTROPHILS % 54.8 % (36.0-66.0); PLATELET COUNT, AUTOMATED 206 10^3/uL (150-450); RED BLOOD COUNT 3.87 10^6/uL (4.00-5.40); WHITE BLOOD COUNT 5.6 10^3/uL (4.0-10.0)
[2024-11-07 16:34] LABS: ETHYL ALCOHOL (ETHANOL) 0.004 % (0.000-0.010)
[2024-11-07 16:36] LABS: ALBUMIN 3.2 G/DL (3.2-5.2); ALKALINE PHOSPHATASE 185 U/L (35-104); ALT/SGPT 16 U/L (7.0-40); AST/SGOT 17 U/L (<34); BILIRUBIN,DIRECT 0.7 MG/DL (<0.4); BILIRUBIN,TOTAL 1.7 MG/DL (0.3-1.2); BLOOD UREA NITROGEN 8 MG/DL (9-23); CALCIUM LEVEL 8.3 MG/DL (8.3-10.6); CARBON DIOXIDE LEVEL 30 MMOL/L (20-31); CHLORIDE LEVEL 107 MMOL/L (98-107); CPK CREATINE PHOSPHOKINASE 64 U/L (34-145); GLOMERULAR FILTRATION RATE 72.3 (>45); GLUCOSE, FASTING 91 MG/DL (74-106); SALICYLATE LEVEL < 3.0 MG/DL (<30); SODIUM LEVEL 145 MMOL/L (136-145); TOTAL PROTEIN 5.7 G/DL (5.7-8.2)
[2024-11-07 21:10] LABS: AMPHETAMINES LEVEL URINE NEGATIVE (NEGATIVE)
[2024-11-07 21:11] LABS: BARBITURATES URINE NEGATIVE (NEGATIVE); BENZODIAZEPINES URINE NEGATIVE (NEGATIVE); CANNABINOIDS URINE NEGATIVE (NEGATIVE); COCAINE METABOLITE URINE NEGATIVE (NEGATIVE); METHADONE URINE NEGATIVE (NEGATIVE); OPIATES URINE NEGATIVE (NEGATIVE); PHENCYCLIDINE URINE NEGATIVE (NEGATIVE)
[2024-11-07] MEDS ORDERED: HOME MED LIST COMPLETE! XX SCH (22:50)
[2024-11-08 00:50] VITALS: BP 124/72; TEMP 97.8; O2SAT 100
[2024-11-08 04:38] VITALS: BP 111/61; TEMP 97.8; O2SAT 100
[2024-11-08 04:49] LABS: HEMATOCRIT 33.6 % (36.0-47.0); HEMOGLOBIN 11.9 g/dl (12.0-15.5); MEAN CORPUSCULAR HGB CONC 35.4 g/dl (32.0-36.5); MEAN CORPUSCULAR VOLUME 98.8 fl (80.0-96.0); PLATELET COUNT, AUTOMATED 170 10^3/uL (150-450); WHITE BLOOD COUNT 5.4 10^3/uL (4.0-10.0)
[2024-11-08 05:11] LABS: ALBUMIN 2.6 G/DL (3.2-5.2); BILIRUBIN,DIRECT 0.5 MG/DL (<0.4); BILIRUBIN,TOTAL 1.3 MG/DL (0.3-1.2); CALCIUM LEVEL 7.8 MG/DL (8.3-10.6); CREATININE FOR GFR 0.75 MG/DL (0.55-1.30); POTASSIUM SERUM 3.4 MMOL/L (3.5-5.1); TOTAL PROTEIN 4.8 G/DL (5.7-8.2)
[2024-11-08 08:02] LABS: MAGNESIUM LEVEL 2.1 MG/DL (1.8-2.4)
[2024-11-08 09:39] VITALS: BP 111/70; TEMP 99.1; O2SAT 97
[2024-11-08 12:09] VITALS: BP 121/66; TEMP 97.1; O2SAT 100
[2024-11-08 16:14] VITALS: BP 124/76; TEMP 97.6; O2SAT 99
[2024-11-08 19:56] VITALS: BP 110/58; TEMP 97; O2SAT 98
[2024-11-08] MEDS ORDERED: MOM 30ML SUSPENSION UDC PO PRN (20:10)
[2024-11-08] MEDS ORDERED: IBUPROFEN 400MG TAB PO PRN (20:10)
[2024-11-08] MEDS ORDERED: MAALOX 30 ML SUSP *UDC PO PRN (20:10)
[2024-11-08] MEDS ORDERED: ACETAMINOPHEN 325 MG TAB PO PRN (20:10)
[2024-11-08] MEDS ORDERED: traZODone 50 MG TAB PO PRN (20:10)
== END 2024-11-08 23:11 | DRG 918 ==
LOC: M ED 15:21 → M ED INP 17:59 → M PCU 11-08 02:05
PROVIDERS: ADMIT Student in an Organized Health Care Education/Training Program; ATTEND Student in an Organized Health Care Education/Training Program
DX: T42.4X2A Poisoning by benzodiazepines, intentional self-harm, initial encounter (principal); F31.81 Bipolar II disorder; T44.7X2A Poisoning by beta-adrenoreceptor antagonists, intentional self-harm, initial encounter; T42.6X5A Adverse effect of other antiepileptic and sedative-hypnotic drugs, initial encounter; Z79.899 Other long term (current) drug therapy; Z88.8 Allergy status to other drugs, medicaments and biological substances; G25.81 Restless legs syndrome; G89.29 Other chronic pain; E55.9 Vitamin D deficiency, unspecified; M79.7 Fibromyalgia; M06.9 Rheumatoid arthritis, unspecified; Z98.84 Bariatric surgery status; Z62.810 Personal history of physical and sexual abuse in childhood

== ENCOUNTER 2024-11-08 18:23 | Inpatient (IN) | payer OTHER ==
[~2024-11-08] VITALS: Ht 162.6 cm; Wt 65.7 kg
[~2024-11-08 18:23] MED LIST changes: -LITH450T11 PO; +LITH450T17 PO
[2024-11-09 00:14] VITALS: BP 145/74; TEMP 96.9; O2SAT 98
[2024-11-09 06:51] VITALS: BP 126/76; TEMP 96.7; O2SAT 99
[2024-11-09] MEDS ORDERED: MOM 30ML SUSPENSION UDC PO PRN (08:10)
[2024-11-09] MEDS ORDERED: traZODone 50 MG TAB PO PRN (08:10)
[2024-11-09] MEDS ORDERED: MAALOX 30 ML SUSP *UDC PO PRN (08:10)
[2024-11-09] MEDS ORDERED: ACETAMINOPHEN 325 MG TAB PO PRN (08:10)
[2024-11-09] MEDS ORDERED: HOME MED LIST COMPLETE! XX SCH (11:25)
[2024-11-09] MEDS: QUEtiapine FUMARATE 25 MG TAB PO SCH (11:56)
[2024-11-09] MEDS: VENLAFAXINE **XR** 75MG CAPSULE PO SCH (11:56)
[2024-11-09] MEDS: rOPINIRole 2MG TAB PO SCH (12:44)
[2024-11-09 14:55] VITALS: BP 144/77; TEMP 97.1; O2SAT 99
[2024-11-09] MEDS: PROPRANOLOL 80MG LA CAP PO SCH (15:33)
[2024-11-09] MEDS: GABAPENTIN 300 MG CAP PO SCH (15:33)
[2024-11-09] MEDS: clonazePAM 0.5 MG TAB PO SCH (15:33)
[2024-11-09] MEDS ORDERED: QUEtiapine FUMARATE 100 MG TAB PO ONE (21:00)
[2024-11-09] MEDS: clonazePAM 1 MG TAB PO SCH (21:10)
[2024-11-09] MEDS: QUEtiapine FUMARATE 100 MG TAB PO SCH (21:10)
[2024-11-10 06:42] VITALS: BP 115/72; TEMP 97; O2SAT 96
[2024-11-10 09:08] VITALS: BP 112/84
[2024-11-10 15:54] VITALS: BP 114/63; TEMP 97; O2SAT 97
[2024-11-10] MEDS: QUEtiapine FUMARATE 200 MG TAB PO SCH (21:11)
[2024-11-10] MEDS: clonazePAM 1 MG TAB PO SCH (21:11)
[2024-11-11 06:40] VITALS: BP 126/67; TEMP 97.1; O2SAT 98
[2024-11-11 08:34] VITALS: BP 123/81
[2024-11-11] MEDS: clonazePAM 0.5 MG TAB PO SCH (08:37)
[2024-11-11 15:57] VITALS: BP 116/59; TEMP 97.8; O2SAT 96
[2024-11-12 06:41] VITALS: BP 126/72; TEMP 95.5; O2SAT 99
[2024-11-12] MEDS: clonazePAM 0.5 MG TAB PO SCH (09:38)
[2024-11-12] MEDS: CARIPRAZINE 3MG CAPSULE (VRAYLAR) PO SCH (09:38)
[2024-11-12 17:26] VITALS: BP 112/71; TEMP 96.7; O2SAT 98
[2024-11-13 06:51] VITALS: BP 119/68; TEMP 97; O2SAT 97
[2024-11-13 15:49] VITALS: BP_SYST 58; BP_SYST 98; BP_DIAS 58; TEMP 98.1; O2SAT 100
[2024-11-13] MEDS: QUEtiapine FUMARATE 100 MG TAB PO SCH (21:24)
[2024-11-14 06:29] VITALS: BP 119/72; TEMP 96.7; O2SAT 97
[2024-11-14 14:28] VITALS: BP 107/64; TEMP 97.7; O2SAT 97
[2024-11-15 06:27] VITALS: BP 103/53; TEMP 96.3; O2SAT 97
[2024-11-15 09:11] VITALS: BP 128/70
[2024-11-15 17:21] VITALS: BP 148/86; TEMP 97.9; O2SAT 97
[2024-11-15] MEDS: clonazePAM 0.5 MG TAB PO SCH (20:38)
[2024-11-16 06:34] VITALS: BP 143/71; TEMP 97.9; O2SAT 99
[2024-11-16 09:21] VITALS: BP 130/90
[2024-11-16] MEDS ORDERED: PILL CUTTER 1 EACH XX PRN (09:35)
[2024-11-16 16:04] VITALS: BP 108/63; TEMP 97.3; O2SAT 97
[2024-11-17 06:42] VITALS: BP 122/74; TEMP 97.1; O2SAT 98
[2024-11-17 15:54] VITALS: BP 106/55; TEMP 98.2; O2SAT 100
[2024-11-18] MEDS ORDERED: QUET1TAB17 PO (05:49)
[2024-11-18] MEDS ORDERED: VRAY4.5C PO (05:49)
[2024-11-18] MEDS ORDERED: ROPI2TAB46 PO (05:49)
[2024-11-18] MEDS ORDERED: PROP80CA PO (05:49)
[2024-11-18] MEDS ORDERED: VENL75CA2 PO (05:49)
[2024-11-18] MEDS ORDERED: CLON0.5T2 PO (05:58)
[2024-11-18] MEDS ORDERED: CLON0.25 PO (05:58)
[2024-11-18 06:28] VITALS: BP 140/84; TEMP 97; O2SAT 100
[2024-11-18 08:35] VITALS: BP 132/80
[2024-11-18] MEDS: CARIPRAZINE 1.5MG CAPSULE (VRAYLAR) PO ONE (09:25)
== END 2024-11-18 13:00 | disposition home or self-care (01) | DRG 885 ==
LOC: M PSY 23:20
PROVIDERS: ADMIT Psychiatry & Neurology Psychiatry; ATTEND Psychiatry & Neurology Psychiatry
DX: F31.81 Bipolar II disorder (principal); F41.9 Anxiety disorder, unspecified; F43.21 Adjustment disorder with depressed mood; G25.81 Restless legs syndrome; G89.29 Other chronic pain; M06.9 Rheumatoid arthritis, unspecified; M79.7 Fibromyalgia; Z62.810 Personal history of physical and sexual abuse in childhood; Z79.899 Other long term (current) drug therapy; Z88.8 Allergy status to other drugs, medicaments and biological substances; T42.4X1D Poisoning by benzodiazepines, accidental (unintentional), subsequent encounter; T44.7X Poisoning by, adverse effect of and underdosing of beta-adrenoreceptor antagonists

== ENCOUNTER → 2025-02-01 | Outpatient (CLI) | payer OTHER, MEDICARE ==
[~2025-02-01] MED LIST changes: +CLON0.25 PO; +CLON0.5T2 PO; +ROPI2TAB46 PO
[2025-02-01 15:04] LABS: PLATELET COUNT, AUTOMATED 222 10^3/uL (150-450)
[2025-02-01 15:13] LABS: ALT/SGPT 31.0 U/L (7.0-40); AST/SGOT 26.0 U/L (<34); CALCIUM LEVEL 8.6 MG/DL (8.3-10.6); CARBON DIOXIDE LEVEL 30.0 MMOL/L (20-31); CHLORIDE LEVEL 107.0 MMOL/L (98-107); CHOLESTEROL LEVEL 108.0 MG/DL (<200); CHOLESTEROL RISK RATIO 2.41 (<5); CREATININE FOR GFR 0.83 MG/DL (0.55-1.30); FREE T4 1.11 NG/DL (0.89-1.76); GLOMERULAR FILTRATION RATE 79.7 (>45); LDL CHOLESTEROL 45.2 MG/DL (<100); NON-HDL-C 63.2 MG/DL; POTASSIUM SERUM 4.3 MMOL/L (3.5-5.1); SODIUM LEVEL 148.0 MMOL/L (136-145); TOTAL 25(OH) VITAMIN D 54.2 NG/ML (20.0-100.0); TRIGLYCERIDES LEVEL 90.0 MG/DL (<150)
== END ==
LOC: M WUC 10:50
PROVIDERS: ATTEND Physician Assistant Medical
DX: I10 Essential (primary) hypertension (principal); E78.89 Other lipoprotein metabolism disorders; E04.1 Nontoxic single thyroid nodule; K76.0 Fatty (change of) liver, not elsewhere classified